=== PATIENT | female | born 1935 | race Caucasian/White ===

== ENCOUNTER 2017-05-01 17:17 | Inpatient (IN) ==
[2017-05-01] MEDS ORDERED: Ipratropium/Albuterol Neb 3 ML IH ONE (18:36)
[2017-05-01 18:38] LABS: Basophils % 0.2 %; Eosinophils # 0.2 K/mcL (0.0-0.6); Eosinophils % 1.2 %; Hematocrit 48.4 % (35.3-44.9); Hemoglobin 15.8 g/dL (11.5-15.4); Immature Granulocytes % 0.4 % (0-4); Lymphocytes % 5.6 %; Mean Corpuscular HGB Conc 32.6 g/dL (31.6-35.5); Mean Corpuscular Hemoglobin 28.9 pg (28.0-33.3); Mean Corpuscular Volume 88.5 fL (83.0-100.0); Mean Platelet Volume 9.6 fL (9.4-12.4); Monocytes # 1.2 K/mcL (0.0-1.3); Monocytes % 6.6 %; Neutrophils # 15.6 K/mcL (1.6-8.9); Nucleated Red Blood Cells 0.1 /100 WBC (0); Platelet Count 237 K/mcL (140-400); Red Blood Count 5.47 M/mcL (3.82-4.97); Red Cell Distribution Width 13.4 % (11.5-14.5)
--- NOTE | 2017-05-01 18:39 | Emergency Department Note ---
Disposition Clinical Impression: Dyspnea Disposition: Still a Patient Referrals: Cody Arora MD [Primary Care Provider] - SOB HPI - General Chief Complaint: ED Shortness of Breath/Dyspnea Stated Complaint: JANE Time Seen by Provider: 05/01/17 18:37 Source: patient, family, EMS Limitations: altered mental status Nursing Notes Reviewed: Yes Vital Signs Reviewed: Yes - History of Present Illness Patient presents to the ED for confusion and shortness of breath. History is provided by family. They state she became labored in breathing 2 hours ago while she was getting dressed with a caregiver. Son states she was okay this morning. She states she cannot catch her breath. They states she has been having some confusion and she is currently on Bactrim for possible UTI. She denies chest pain. She denies any history of coronary disease or CHF. She is a current smoker. She does not wear oxygen but they state they checked on a portable pulse ox and it was in the 80s. - Related Data Home Medications Medication Instructions Recorded Confirmed Losartan 12/12/16 12/12/16 Potassium Chloride 12/12/16 Previous Rx's Medication Instructions Recorded levoFLOXacin [Levaquin] 500 mg PO DAILY #10 tablet 12/12/16 methylPREDNISolone [Medrol] 0 mg PO DAILY #21 tablet 12/12/16 Allergies Allergy/AdvReac Type Severity Reaction Status Date / Time Penicillins [PCN] Allergy Rash Verified 05/01/17 17:39 All systems ED: reviewed and negative except as stated. Constitutional: Denies: fever Cardiovascular: Denies: chest pain Respiratory: Reports: cough, dyspnea. Denies: wheezes Gastrointestinal: Denies: vomiting, diarrhea Past Medical History - Past Medical History Attestation: Yes The following information was validated with the patient. Source: patient, obtained from family Medical history: Reports: non-contributory, hypertension Psychiatric history: Reports: no psych history - Social History Smoking Status: Current every day smoker Smokeless Tobacco Status: No Alcohol use: Reports: none Drug use: Reports: none Physical Exam Patient awake and alert. Visibly dyspneic and tachypneic. Mild respiratory distress. Lung sounds are diminished. - General Limitations: altered mental status General appearance: alert, in no apparent distress - Head Head exam: atraumatic, normocephalic - Eye Eye exam: Present: normal appearance - ENT ENT exam: normal exam, normal oropharynx - Neck Neck exam: Present: normal inspection - Chest Chest inspection: Present: normal inspection - Respiratory Respiratory exam: Present: respiratory distress, accessory muscle use. Absent: stridor - Cardiovascular Cardiovascular exam: Present: normal rhythm, tachycardia - Abdominal Exam Abdominal exam: Present: soft, Non-Tender - Neurological Exam Neurological exam: Present: alert - Psychiatric Psychiatric exam: Present: normal affect - Skin Skin exam: Present: warm, dry Course Course Narrative: Patient short of breath but her mental status. Concern for pneumonia. Septic workup. Will be signed out to mine shifter. Vital Signs Temperature 99.6 F 05/01/17 17:33 Pulse Rate 111 05/01/17 17:33 Respiratory Rate 24 05/01/17 17:33 Blood Pressure 159/92 05/01/17 17:33 O2 Sat by Pulse Oximetry 93 05/01/17 17:33 Temperature 99.6 F 05/01/17 17:33 Pulse Rate 117 05/01/17 18:30 Respiratory Rate 26 05/01/17 18:30 Blood Pressure 179/106 05/01/17 18:30 O2 Sat by Pulse Oximetry 93 05/01/17 18:30 Oxygen Delivery Oxygen Delivery Nasal Cannula Shortness of Breath/Dyspnea - EKG Data EKG attestation: Yes I reviewed and interpreted this EKG. EKG results narrative: Sinus tach at 109. Minimal anteroseptal ST depressions likely secondary to rate. Normal QRS. Unchanged from EKG August 2009.
[2017-05-01 18:44] LABS: Bilirubin,Urine Negative (Negative); Blood,Urine Negative (Negative); Clarity,Urine Clear (Clear); Color,Urine Yellow (Yellow); Glucose,Urine (UA) Normal (Normal); Ketones,Urine Trace mg/dL (Negative); Leukocyte Esterase,Urine Trace (Negative); Nitrite,Urine Negative (Negative); Protein,Urine Negative (Neg-Trace); Specific Gravity,Urine 1.019 (1.010-1.025); Urobilinogen,Urine Normal (Normal)
[2017-05-01 18:45] LABS: Bacteria,Urine None Seen per hpf (None-Few); Hyaline Casts,Urine None Seen per lpf (None-Few); RBC,Urine 0-3 per hpf (0-3); Squamous Epithelial Cell,Urine Many per lpf (None-Few); WBC,Urine 0-3 per hpf (0-3)
[2017-05-01] MEDS ORDERED: 0.9 % Sodium Chloride 1,000 ML IVC ONE ×2 (18:47→20:39)
[2017-05-01] MEDS ORDERED: Azithromycin 500 MG in D5% in Water 250 ML IVPB ONE (18:48)
[2017-05-01 18:53] LABS: Calcium 9.6 mg/dL (8.6-10.8); Potassium 4.3 mEq/L (3.5-4.5)
[2017-05-01 20:00] LABS: Albumin/Globulin Ratio 1.2 (1.1-2.2); Bilirubin,Direct 0.2 mg/dL (0.0-0.5); Bilirubin,Indirect 0.4 mg/dL (0.0-1.2); Bilirubin,Total 0.6 mg/dL (0.2-1.2); Globulin 3.4 g/dL (2.4-3.5); Magnesium 1.8 mg/dL (1.6-2.6); Phosphorous 2.5 mg/dL (2.3-4.7); Total Protein 7.4 g/dL (6.0-8.3)
[2017-05-01] MEDS ORDERED: 0.9 % Sodium Chloride 500 ML IVC ONE (22:00)
--- NOTE | 2017-05-01 22:44 | Emergency Department Note ---
Disposition Clinical Impression: Septic shock Dyspnea Qualifiers: Dyspnea type: unspecified Qualified Code(s): R06.00 - Dyspnea, unspecified Pneumonia Qualifiers: Aspiration pneumonia type: unspecified Laterality: left Lung location: unspecified part of lung Acute respiratory failure Qualifiers: Respiratory failure complication: unspecified whether with hypoxia or hypercapnia Qualified Code(s): J96.00 - Acute respiratory failure, unspecified whether with hypoxia or hypercapnia Disposition: Admitted As Inpatient Condition: Critical Time of Disposition: 22:45 SOB HPI - General Chief Complaint: ED Shortness of Breath/Dyspnea Stated Complaint: JANE Time Seen by Provider: 05/01/17 18:37 Source: patient, family, EMS Limitations: altered mental status Nursing Notes Reviewed: Yes Vital Signs Reviewed: Yes - History of Present Illness Patient received on sign out from the day team, Dr. Monson and Dr. Gordillo. Please refer to their note for complete history and physical exam on intake. In brief: Mrs. Carver, an 81-year-old female, presents from home for evaluation of acute onset dyspnea this morning per her home health aide. Patient has had no fevers or chills. She is not having diagnosis of COPD who has a remote history of smoking. Patient is on day 3 of Macrobid for a urinary tract infection. - Related Data Home Medications Medication Instructions Recorded Confirmed Calcium Carbonate/Vitamin D3 1 each PO BID 05/01/17 05/01/17 [Calcium 600-Vit D3 800 Tablet] Cholecalciferol (D-3) [Vitamin D] 1,000 unit PO DAILY 05/01/17 05/01/17 Loratadine [Claritin] 10 mg PO DAILY 05/01/17 05/01/17 Losartan Potassium [Cozaar] 50 mg PO DAILY 05/01/17 05/01/17 Memantine HCl [Namenda Xr] 28 mg PO DAILY 05/01/17 05/01/17 Nitrofurantoin (BID) [Macrobid] 100 mg PO BID 05/01/17 05/01/17 Polymyxn-B/Trimeth Opth Drops 1 drop RIGHT EYE Q3H 05/01/17 05/01/17 [Polytrim Opth Drops] Potassium Chloride [Klor-Con 10] 10 meq PO AD 05/01/17 05/01/17 Tolterodine LA (24 HR) [Detrol LA] 2 mg PO DAILY 05/01/17 05/01/17 Vit C/E/Zn/Coppr/Lutein/Zeaxan 1 cap PO BID 05/01/17 05/01/17 [Preservision Areds 2 Softgel] hydroCHLOROthiazide 12.5 mg PO MOWEFR 05/01/17 05/01/17 [Hydrochlorothiazide] Allergies Allergy/AdvReac Type Severity Reaction Status Date / Time Penicillins [PCN] Allergy Rash Verified 05/01/17 17:39 All systems ED: reviewed and negative except as stated. Review of Systems: As Per HPI Constitutional: Denies: fever Cardiovascular: Denies: chest pain Respiratory: Reports: cough, dyspnea. Denies: wheezes Gastrointestinal: Denies: vomiting, diarrhea Past Medical History - Past Medical History Medical history: Reports: non-contributory, hypertension Psychiatric history: Reports: no psych history - Social History Smoking Status: Current every day smoker Smokeless Tobacco Status: No Alcohol use: Reports: none Drug use: Reports: none Physical Exam Vital Signs Reviewed General: Patient is alert, oriented, and in moderate respiratory distress. She is tachypneic but otherwise appears comfortable. HEENT: No facial asymmetry. Head is normocephalic and atraumatic. [place]uc[place] tachycardia. Trachea midline. Cardiovascular: Heart regular rate and rhythm without clicks, rubs, gallops, or murmurs. No JVD. PMI nondisplaced. Respiratory: Symmetric chest rise with poor respiratory effort. Prolonged expiratory phase. Bilateral breath sounds are diminished. Abdomen: Bowel sounds present normoactive x-4 quadrants. Abdomen is soft, nondistended, and nontender. No organomegaly noted. Skin: Warm, dry, intact. Psych: Patient's affect is appropriate for situation. - General Limitations: altered mental status General appearance: alert, in no apparent distress Course Course Narrative: Patient received on sign out from the day team, Dr. Monson and Dr. Gordillo. Please refer to their note for complete history and physical exam on intake. After 1 L IV bolus, patient has borderline blood pressure with systolic in the 90s. She remains tachypneic and tachycardic. We will rebolus an additional 1.5 L reassessing her lung sounds and moderate her vitals. Patient is SIRS (+) with tachypnea, tachycardia She has severe sepsis with lactate 4.1. Suspected source of community-acquired pneumonia. Empiric antibodies started by the day team. I discussed all findings with the patient and her daughter at bedside. They agree to admission to the hospital for continued evaluation and management. I discussed the patient with the admitting hospitalist, Dr. Petty, who agrees to accept her for continued evaluation and management. Reevaluation, patient remains tachycardic with worsening tachypnea area for work of breathing appears to be increased. She is saturating well on nasal cannula. In conjunction with Dr. Petty, will draw ABG and place on BiPAP with patient slotted for admission to the ICU. - Reevaluation(s) Reevaluation #1: On reexamination after 2 L of fluid patient's oxygen saturation is 96% on oxygen by nasal cannula. Respiratory rate 28. Heart rate 118. Blood pressure 121/63. Patient is alert and oriented and mentating normally. Breath sounds are decreased but equal bilaterally. No rales or wheezes noted. Heart is tachycardic and regular. Skin is warm and dry with good capillary refill and normal peripheral pulses. Time: 22:30 Vital Signs Temperature 99.6 F 05/01/17 17:33 Pulse Rate 111 05/01/17 17:33 Respiratory Rate 24 05/01/17 17:33 Blood Pressure 159/92 05/01/17 17:33 O2 Sat by Pulse Oximetry 93 05/01/17 17:33 Temperature 99.1 F 05/01/17 22:29 Pulse Rate 114 05/01/17 22:29 Respiratory Rate 20 05/01/17 22:29 Blood Pressure 121/63 05/01/17 22:29 O2 Sat by Pulse Oximetry 95 05/01/17 22:29 Oxygen Delivery Oxygen Delivery Nasal Cannula Shortness of Breath/Dyspnea - Lab Data Result diagrams: 05/01/17 18:27 05/01/17 18:27 Lab Results 05/01/17 05/01/17 05/01/17 Range/Units 18:27 18:27 18:27 WBC 18.1 H (4.3-11.1) K/mcL RBC 5.47 H (3.82-4.97) M/mcL Hgb 15.8 H (11.5-15.4) g/dL Hct 48.4 H (35.3-44.9) % MCV 88.5 (83.0-100.0) fL MCH 28.9 (28.0-33.3) pg MCHC 32.6 (31.6-35.5) g/dL RDW 13.4 (11.5-14.5) % Plt Count 237 (140-400) K/mcL MPV 9.6 (9.4-12.4) fL Immature Gran % 0.4 (0-4) % Seg Neutrophils % 86.0 % Lymphocytes % 5.6 % Monocytes % 6.6 % Eosinophils % 1.2 % Basophils % 0.2 % Neutrophils # 15.6 H (1.6-8.9) K/mcL Lymphocytes # 1.0 (0.6-4.6) K/mcL Monocytes # 1.2 (0.0-1.3) K/mcL Eosinophils # 0.2 (0.0-0.6) K/mcL Basophils # 0.0 (0.0-0.2) K/mcL Nucleated RBCs/100 WBC 0.1 H (0) /100 WBC Sodium 138 (136-145) mEq/L Potassium 4.3 (3.5-4.5) mEq/L Chloride 102 (98-109) mEq/L Carbon Dioxide 26 (19-29) mEq/L BUN 15 (7-20) mg/dL Creatinine 1.11 (0.57-1.11) mg/dL Est GFR ( Amer) 57 L (> 60) Est GFR (Non-Af Amer) 47 L (> 60) BUN/Creatinine Ratio 14 (6-26) Glucose 156 H (70-99) mg/dL Calculated Osmolality 290 (280-300) Lactic Acid 2.5 H (0.5-2.2) mmol/L Calcium 9.6 (8.6-10.8) mg/dL Phosphorus (2.3-4.7) mg/dL Magnesium (1.6-2.6) mg/dL Total Bilirubin (0.2-1.2) mg/dL Direct Bilirubin (0.0-0.5) mg/dL Indirect Bilirubin (0.0-1.2) mg/dL AST (5-34) Units/L ALT (0-55) Units/L Alkaline Phosphatase (38-126) Units/L Troponin I (0-0.03) ng/mL B-Natriuretic Peptide (0-100) pg/mL Serum Total Protein (6.0-8.3) g/dL Albumin (3.5-5.0) g/dL Globulin (2.4-3.5) g/dL Albumin/Globulin Ratio (1.1-2.2) Urine Color (Yellow) Urine Clarity (Clear) Urine pH (5.0-8.0) pH Units Ur Specific [place] (1.010-1.025) Urine Protein (Neg-Trace) mg/dL Urine Glucose (UA) (Normal) mg/dL Urine Ketones (Negative) mg/dL Urine Blood (Negative) Urine Nitrite (Negative) Urine Bilirubin (Negative) Urine Urobilinogen (Normal) mg/dL Ur Leukocyte Esterase (Negative) Urine Microscopic RBC (0-3) per hpf Urine Microscopic WBC (0-3) per hpf Ur Squamous Epith Cells (None-Few) per lpf Urine Bacteria (None-Few) per hpf Hyaline Casts (None-Few) per lpf Ur Culture Indicated? (NO) 05/01/17 05/01/17 05/01/17 Range/Units 18:27 18:27 18:27 WBC (4.3-11.1) K/mcL RBC (3.82-4.97) M/mcL Hgb (11.5-15.4) g/dL Hct (35.3-44.9) % MCV (83.0-100.0) fL MCH (28.0-33.3) pg MCHC (31.6-35.5) g/dL RDW (11.5-14.5) % Plt Count (140-400) K/mcL MPV (9.4-12.4) fL Immature Gran % (0-4) % Seg Neutrophils % % Lymphocytes % % Monocytes % % Eosinophils % % Basophils % % Neutrophils # (1.6-8.9) K/mcL Lymphocytes # (0.6-4.6) K/mcL Monocytes # (0.0-1.3) K/mcL Eosinophils # (0.0-0.6) K/mcL Basophils # (0.0-0.2) K/mcL Nucleated RBCs/100 WBC (0) /100 WBC Sodium (136-145) mEq/L Potassium (3.5-4.5) mEq/L Chloride (98-109) mEq/L Carbon Dioxide (19-29) mEq/L BUN (7-20) mg/dL Creatinine (0.57-1.11) mg/dL Est GFR ( Amer) (> 60) Est GFR (Non-Af Amer) (> 60) BUN/Creatinine Ratio (6-26) Glucose (70-99) mg/dL Calculated Osmolality (280-300) Lactic Acid (0.5-2.2) mmol/L Calcium (8.6-10.8) mg/dL Phosphorus 2.5 (2.3-4.7) mg/dL Magnesium 1.8 (1.6-2.6) mg/dL Total Bilirubin 0.6 (0.2-1.2) mg/dL Direct Bilirubin 0.2 (0.0-0.5) mg/dL Indirect Bilirubin 0.4 (0.0-1.2) mg/dL AST 15 (5-34) Units/L ALT 14 (0-55) Units/L Alkaline Phosphatase 94 (38-126) Units/L Troponin I 0.00 (0-0.03) ng/mL B-Natriuretic Peptide 123 H (0-100) pg/mL Serum Total Protein 7.4 (6.0-8.3) g/dL Albumin 4.0 (3.5-5.0) g/dL Globulin 3.4 (2.4-3.5) g/dL Albumin/Globulin Ratio 1.2 (1.1-2.2) Urine Color (Yellow) Urine Clarity (Clear) Urine pH (5.0-8.0) pH Units Ur Specific [place] (1.010-1.025) Urine Protein (Neg-Trace) mg/dL Urine Glucose (UA) (Normal) mg/dL Urine Ketones (Negative) mg/dL Urine Blood (Negative) Urine Nitrite (Negative) Urine Bilirubin (Negative) Urine Urobilinogen (Normal) mg/dL Ur Leukocyte Esterase (Negative) Urine Microscopic RBC (0-3) per hpf Urine Microscopic WBC (0-3) per hpf Ur Squamous Epith Cells (None-Few) per lpf Urine Bacteria (None-Few) per hpf Hyaline Casts (None-Few) per lpf Ur Culture Indicated? (NO) 05/01/17 05/01/17 Range/Units 18:28 19:45 WBC (4.3-11.1) K/mcL RBC (3.82-4.97) M/mcL Hgb (11.5-15.4) g/dL Hct (35.3-44.9) % MCV (83.0-100.0) fL MCH (28.0-33.3) pg MCHC (31.6-35.5) g/dL RDW (11.5-14.5) % Plt Count (140-400) K/mcL MPV (9.4-12.4) fL Immature Gran % (0-4) % Seg Neutrophils % % Lymphocytes % % Monocytes % % Eosinophils % % Basophils % % Neutrophils # (1.6-8.9) K/mcL Lymphocytes # (0.6-4.6) K/mcL Monocytes # (0.0-1.3) K/mcL Eosinophils # (0.0-0.6) K/mcL Basophils # (0.0-0.2) K/mcL Nucleated RBCs/100 WBC (0) /100 WBC Sodium (136-145) mEq/L Potassium (3.5-4.5) mEq/L Chloride (98-109) mEq/L Carbon Dioxide (19-29) mEq/L BUN (7-20) mg/dL Creatinine (0.57-1.11) mg/dL Est GFR ( Amer) (> 60) Est GFR (Non-Af Amer) (> 60) BUN/Creatinine Ratio (6-26) Glucose (70-99) mg/dL Calculated Osmolality (280-300) Lactic Acid 4.1 H* (0.5-2.2) mmol/L Calcium (8.6-10.8) mg/dL Phosphorus (2.3-4.7) mg/dL Magnesium (1.6-2.6) mg/dL Total Bilirubin (0.2-1.2) mg/dL Direct Bilirubin (0.0-0.5) mg/dL Indirect Bilirubin (0.0-1.2) mg/dL AST (5-34) Units/L ALT (0-55) Units/L Alkaline Phosphatase (38-126) Units/L Troponin I (0-0.03) ng/mL B-Natriuretic Peptide (0-100) pg/mL Serum Total Protein (6.0-8.3) g/dL Albumin (3.5-5.0) g/dL Globulin (2.4-3.5) g/dL Albumin/Globulin Ratio (1.1-2.2) Urine Color Yellow (Yellow) Urine Clarity Clear (Clear) Urine pH 6.0 (5.0-8.0) pH Units Ur Specific [place] 1.019 (1.010-1.025) Urine Protein Negative (Neg-Trace) mg/dL Urine Glucose (UA) Normal (Normal) mg/dL Urine Ketones Trace H (Negative) mg/dL Urine Blood Negative (Negative) Urine Nitrite Negative (Negative) Urine Bilirubin Negative (Negative) Urine Urobilinogen Normal (Normal) mg/dL Ur Leukocyte Esterase Trace H (Negative) Urine Microscopic RBC 0-3 (0-3) per hpf Urine Microscopic WBC 0-3 (0-3) per hpf Ur Squamous Epith Cells Many H (None-Few) per lpf Urine Bacteria None Seen (None-Few) per hpf Hyaline Casts None Seen (None-Few) per lpf Ur Culture Indicated? YES A (NO) Critical Care Time Critical Care Time: Yes Total Critical Care Time: 45 Attestation: Critical care performed: Time is exclusive of separately billable procedures. Time includes: direct patient care, patient reassessment, coordination of patient care, interpretation of data (laboratory data, radiology data, and respiratory data), review of patient's medical records, medical consultation and documentation of patient care. Procedures included in critical care time: Procedures excluded from critical care time: Attestation Statement - Attestation Attestation: I, Coleman Marquez MD, personally evaluated this patient and discussed their management with the resident physician. I reviewed the resident's note and agree with the documented findings, medical decision making, and plan of care. This patient was signed out at shift change from Dr. Monson. Please refer to her note for complete details of the history and physical examination. Patient is an 81-year-old male who presented to the emergency department complaining of shortness of breath was just started this evening. There has been some cough. She does not know see any fever. Patient states that she has not felt well for the past few days. Workup revealed a left lower lobe pneumonia. Patient meets criteria for septic shock with a lactate greater than 4. She had blood cultures, IV fluids, and antibiotics. The emergency department. On examination patient is a well-developed well-nourished elderly female in no acute distress. She is alert and oriented 3. Patient is tachypneic with a respiratory rate of 28 at time of my exam. She also is tachycardic with a heart rate of about 120. There is no cyanosis or diaphoresis. Breath sounds are equal bilaterally with no definite rales or wheezes noted. Heart is tachycardic and regular. Abdomen soft and nontender with normal bowel sounds. Chest x-ray showed a left lower lobe pneumonia. Labs reviewed. Leukocytosis. Lactic acid 4.1. The hospitalist, Dr. Petty, was consulted and accepted admission of the patient. Patient admitted to ICU.
[2017-05-01] MEDS ORDERED: methylPREDNISolone 125 MG/2 ML VIAL IVP ONE (22:52)
[2017-05-01] MEDS ORDERED: Furosemide 40 MG/4 ML VIAL IVP ONE (22:58)
[2017-05-01] MEDS ORDERED: Levofloxacin 750 MG/150 ML 750 MG/150 ML BAG IVPB SCH (23:00)
[2017-05-01] MEDS ORDERED: Cefepime HCl 2,000 MG in D5% in Water 100 ML IVP SCH (23:00)
[2017-05-01] MEDS ORDERED: Cefepime HCl 2,000 MG in Water for inj. (sterile) 10 ML IVP SCH (23:00)
[2017-05-01] MEDS ORDERED: Vancomycin 1,250 MG in D5% in Water 250 ML IVPB SCH (23:00)
[2017-05-01 23:04] LABS: ABG Base Excess -6 mEq/L (-2 to 3); ABG HCO3 20 mEq/L (21-27); ABG Oxygen Saturation 96 % (95-98); ABG PCO2 42 mmHg (35-45); ABG PO2 89 mmHg (85-104); ABG TCO2 22 mEq/L (20-26)
[2017-05-01] MEDS: Ipratropium/Albuterol Neb 3 ML IH SCH (23:59)
[2017-05-02] MEDS ORDERED: Vancomycin 1,250 MG in D5% in Water 250 ML IVPB SCH (00:01)
[2017-05-02] MEDS: methylPREDNISolone 125 MG/2 ML VIAL IVP SCH ×2 (00:13→05:30)
--- NOTE | 2017-05-02 00:43 | Internal Med History&Physical ---
Date of Encounter: 05/02/17 Time of Encounter: 00:42 Assessment and Plan (1) Community acquired pneumonia Current visit: Yes Status: Acute Given acuity of presentation and the fact that she has been on Bactrim for 4 days I will broaden antibiotic coverage for pneumonia. We will start the patient on vancomycin, cefepime, Levaquin. Check sputum and blood culture. Patient also has an elemental bronchospasm. She is a lifelong smoker and maybe having underlying COPD. I will start the patient on IV steroids and around-the- clock nebulizer treatment. Qualifiers: Qualified Code(s): J18.9 - Pneumonia, unspecified organism (2) Acute respiratory failure Current visit: Yes Status: Acute Patient with increased work of breathing despite being on 3 L of oxygen. I would start the patient on BiPAP to help with the work of breathing. Arterial blood gas was performed showed mild metabolic acidosis, PCO2 was 42. And PO2 of 89 on 3 L of nasal oxygen. Qualifiers: Respiratory failure complication: unspecified whether with hypoxia or hypercapnia Qualified Code(s): J96.00 - Acute respiratory failure, unspecified whether with hypoxia or hypercapnia (3) Full code status Current visit: Yes Status: Acute Internal Medicine - H&P: HPI Chief complaint: sob History of present illness: Ms. Carver is a 81 year old female who is a lifelong smoker presents to the emergency room today with a main component of shortness of breath. For the past day or so patient has been noticing progressive shortness of breath to the point where she is unable to breathe the rest. She was having nonproductive cough subjective fevers and chills. She was found to have oxygen saturation of 80%. Patient has been recently on Bactrim for 4 days for urinary tract infection. During my interview agent was in respiratory distress, with excessive muscle use and speaking in 1 to 2 word sentences. She denies any chest pain. She she had just received 2.5 L of fluid for meeting sepsis criteria. She denies any recent hospitalization within the past 3 months. She is a lifelong smoker has not been officially diagnosed with COPD. Past Med Surg Social Fam HX - Past Medical History Medical history: non-contributory, hypertension Psychiatric history: no psych history - Social History Smoking Status: Current every day smoker Smokeless Tobacco Status: No Alcohol use: none Drug use: none Internal Medicine - H&P: Meds Calcium Carbonate/Vitamin D3 [Calcium 600-Vit D3 800 Tablet] 1 each PO BID 05/01 [History] Cholecalciferol (D-3) [Vitamin D] 1,000 unit PO DAILY 05/01/17 [History] Loratadine [Claritin] 10 mg PO DAILY 05/01/17 [History] Losartan Potassium [Cozaar] 50 mg PO DAILY 05/01/17 [History] Memantine HCl [Namenda Xr] 28 mg PO DAILY 05/01/17 [History] Nitrofurantoin (BID) [Macrobid] 100 mg PO BID 05/01/17 [History] Polymyxn-B/Trimeth Opth Drops [Polytrim Opth Drops] 1 drop RIGHT EYE Q3H [History] Potassium Chloride [Klor-Con 10] 10 meq PO AD 05/01/17 [History] Tolterodine LA (24 HR) [Detrol LA] 2 mg PO DAILY 05/01/17 [History] Vit C/E/Zn/Coppr/Lutein/Zeaxan [Preservision Areds 2 Softgel] 1 cap PO BID 05/01 [History] hydroCHLOROthiazide [Hydrochlorothiazide] 12.5 mg PO MOWEFR 05/01/17 [History] 3 Allergy/AdvReac Type Severity Reaction Status Date / Time Penicillins [PCN] Allergy Rash Verified 05/01/17 17:39 All Systems PM: A 10-system review of systems was performed and is negative for pertinent findings except as documented above in the HPI. Review of systems: 10 point review of systems is negative except for HPI - Constitutional Vitals: Temp Pulse Resp BP Pulse Ox 99.1 F 114 27 117/60 96 05/01/17 22:29 05/01/17 22:29 05/01/17 23:59 05/01/17 23:59 05/01/17 23:59 Exam: Gen.: patient is alert oriented times 3, moderate respiratory distress cardiac: Normal S1, S2, no additional sounds or murmurs chest: diminishaed air entry, expiratory wheeze, crackles inleft base Abdomen: Soft, slight tenderness to deep palpation in lower abdomen. No rebound lower extremity Lax calf muscles no swelling Neuro: no focal deficits Internal Med - H&P Results - Labs CBC & Chem 7: 05/01/17 18:27 05/01/17 18:27 - ABG Interpretation ABG results: 05/01/17 22:54 ABG pH 7.30 L ABG pCO2 42 ABG pO2 89 ABG HCO3 20 L ABG Total CO2 22 ABG O2 Saturation 96 ABG Base Excess -6 L
[2017-05-02] MEDS: Ipratropium/Albuterol Neb 3 ML IH SCH ×4 (01:53→08:48)
[2017-05-02 04:44] LABS: Basophils % 0.1 %; Eosinophils % 0.1 %; Hematocrit 40.4 % (35.3-44.9); Immature Granulocytes % 0.6 % (0-4); Lymphocytes # 0.4 K/mcL (0.6-4.6); Lymphocytes % 2.3 %; Mean Corpuscular HGB Conc 33.4 g/dL (31.6-35.5); Mean Corpuscular Hemoglobin 29.6 pg (28.0-33.3); Mean Corpuscular Volume 88.6 fL (83.0-100.0); Mean Platelet Volume 9.8 fL (9.4-12.4); Monocytes # 0.5 K/mcL (0.0-1.3); Monocytes % 2.6 %; Neutrophils # 16.8 K/mcL (1.6-8.9); Platelet Count 190 K/mcL (140-400); Red Blood Count 4.56 M/mcL (3.82-4.97); Red Cell Distribution Width 13.7 % (11.5-14.5); Segmented Neutrophils % 94.3 %
[2017-05-02 04:45] LABS: Hemoglobin 13.5 g/dL (11.5-15.4)
[2017-05-02 05:03] LABS: Magnesium 1.5 mg/dL (1.6-2.6); Potassium 3.7 mEq/L (3.5-4.5)
[2017-05-02] MEDS ORDERED: 0.9 % Sodium Chloride 500 ML IVC ONE ×2 (05:07→10:48)
[2017-05-02] MEDS ORDERED: *HR* Heparin 5,000 UNIT/ML VIAL SQ SCH (06:00)
[2017-05-02] MEDS ORDERED: Magnesium Sulfate 2 GM in D5% in Water 100 ML IVPB ONE (06:56)
[2017-05-02] MEDS ORDERED: Ipratropium/Albuterol Neb 3 ML IH PRN ×2 (08:13→12:18)
[2017-05-02] MEDS ORDERED: Pantoprazole 40 MG VIAL IVP SCH (09:00)
[2017-05-02] MEDS ORDERED: *HR* Dextrose 50 % in Water (Syg) 50 ML SYRINGE IVP PRN ×3 (09:03→12:18)
[2017-05-02] MEDS ORDERED: Dextrose Gel 15 GM PO PRN ×8 (09:03→12:18)
[2017-05-02] MEDS ORDERED: D5% in Water 1,000 ML IVC PRN ×3 (09:03→12:18)
[2017-05-02] MEDS ORDERED: Ringers Solution, Lactated 1,000 ML IVC SCH (09:15)
--- NOTE | 2017-05-02 09:42 | Pulmonology Consult Note ---
Date of Encounter: 05/02/17 Time of Encounter: 07:30 Assessment and Plan (1) Severe sepsis Current Visit: Yes Status: Acute Patient was received fluid, I feel that she still need more fluid resuscitation and she will need to be IV maintenance. She is on broad-spectrum antibiotic and source most likely is urinary tract and I have reviewed chest x-ray overall I am not impressed about pneumonia to be is the source, however it is in the differential diagnosis. I will repeat lactic acid level. Patient overall alert and follows commands and denies any distress. Clinically there is no signs of hypoperfusion such as cold skin or poor capillary refills. (2) Suspected chronic obstructive pulmonary disease based on initial evaluation Current Visit: Yes Status: Chronic Patient has history of smoking and she will need outpatient workup. I do not feel this is COPD exacerbation and I will stop her systemic steroid and had Symbicort. (3) Tobacco abuse Current Visit: Yes Status: Chronic Advised patient to quit smoking. (4) Tobacco abuse counseling Current Visit: Yes Status: Chronic (5) Acute respiratory failure Current Visit: Yes Status: Acute Apparently patient did not have a pulmonary workup in the past and with history of smoking is a possibility that she needed oxygen even before this illness, but is unknown and for now she will need to be on oxygen and wean off to keep SPO2 around 90%. Qualifiers: Respiratory failure complication: unspecified whether with hypoxia or hypercapnia Qualified Code(s): J96.00 - Acute respiratory failure, unspecified whether with hypoxia or hypercapnia (6) AWILDA (acute kidney injury) Current Visit: Yes Status: Acute This is could be related to underlying sepsis and she will need IV fluid. (7) Community acquired pneumonia Current Visit: Yes Status: Acute I reviewed chest x-ray and suspect atelectasis rather than pneumonia, however it is in the differential diagnosis and since she is a smoker this could be a source of sepsis. Qualifiers: Qualified Code(s): J18.9 - Pneumonia, unspecified organism History of Present Illness Consult date: 05/02/17 Requesting physician: Rafiq Petty Reason for consult: dyspnea, other (Severe sepsis) Chief complaint: Shortness of breath History of present illness: This is a pleasant 81-year-old poor historian with significant history of smoking who presented to emergency room with chief complaint of shortness of breath, but she is not able to specify for how long. Patient is feeling better now. She was found to have high lactic acid and was admitted to ICU. Patient has received some fluid restrict, however she was given Lasix also and her lactic acid apparently has increased. Patient denies any significant productive cough and denies any fever. She was found to be hypoxic, however she is not on oxygen at home. Patient has been treated for UTI and she was also reported to have some mental status change. Again overall poor historian and not able to obtain more history from her. Past Med Surg Social Fam HX - Past Medical History Medical history: non-contributory, hypertension Psychiatric history: no psych history - Social History Smoking Status: Current every day smoker Smokeless Tobacco Status: No Alcohol use: none Drug use: none Medications and Allergies Calcium Carbonate/Vitamin D3 [Calcium 600-Vit D3 800 Tablet] 1 each PO BID 05/01 [History] Cholecalciferol (D-3) [Vitamin D] 1,000 unit PO DAILY 05/01/17 [History] Loratadine [Claritin] 10 mg PO DAILY 05/01/17 [History] Losartan Potassium [Cozaar] 50 mg PO DAILY 05/01/17 [History] Memantine HCl [Namenda Xr] 28 mg PO DAILY 05/01/17 [History] Nitrofurantoin (BID) [Macrobid] 100 mg PO BID 05/01/17 [History] Polymyxn-B/Trimeth Opth Drops [Polytrim Opth Drops] 1 drop RIGHT EYE Q3H [History] Potassium Chloride [Klor-Con 10] 10 meq PO AD 05/01/17 [History] Tolterodine LA (24 HR) [Detrol LA] 2 mg PO DAILY 05/01/17 [History] Vit C/E/Zn/Coppr/Lutein/Zeaxan [Preservision Areds 2 Softgel] 1 cap PO BID 05/01 [History] hydroCHLOROthiazide [Hydrochlorothiazide] 12.5 mg PO MOWEFR 05/01/17 [History] 3 Allergy/AdvReac Type Severity Reaction Status Date / Time Penicillins [PCN] Allergy Rash Verified 05/01/17 17:39 All Systems: A 10-system review of systems was performed and is negative for pertinent findings except as documented above in the HPI. Physical Examination Vital Signs: Vital Signs, Last 4 Hours Temp Pulse Resp BP Pulse Ox 05/02/17 08:14 98.7 F 05/02/17 08:00 104 05/02/17 06:00 107 20 109/68 94 05/02/17 05:40 16 95 General appearance: no acute distress Eyes: nonicteric ENT: oropharynx dry Mallampati (class): 3 Neck: supple, no lymphadenopathy Effort: mildly labored Inspection: hyperextended Auscultation: bilateral: diminished breath sounds Percussion: bilateral: not dull Cardiovascular: regular rate and rhythm Gastrointestinal: normoactive bowel sounds, non-distended Extremities: no cyanosis normal mental status, non-focal exam anxious Results - Laboratory Findings CBC and BMP: 05/02/17 04:29 05/02/17 04:29 ABG ABG pH 7.30 pH Units (7.32-7.45) L 05/01/17 22:54 ABG pCO2 42 mmHg (35-45) 05/01/17 22:54 ABG pO2 89 mmHg (85-104) 05/01/17 22:54 ABG O2 Saturation 96 % (95-98) 05/01/17 22:54 Abnormal lab findings: Abnormal lab results WBC 17.8 K/mcL (4.3-11.1) H 05/02/17 04:29 Neutrophils # 16.8 K/mcL (1.6-8.9) H 05/02/17 04:29 Lymphocytes # 0.4 K/mcL (0.6-4.6) L 05/02/17 04:29 Nucleated RBCs/100 WBC 0.1 /100 WBC (0) H 05/01/17 18:27 ABG pH 7.30 pH Units (7.32-7.45) L 05/01/17 22:54 ABG HCO3 20 mEq/L (21-27) L 05/01/17 22:54 ABG Base Excess -6 mEq/L (-2 to 3) L 05/01/17 22:54 Creatinine 1.18 mg/dL (0.57-1.11) H 05/02/17 04:29 Est GFR ( Amer) 53 (> 60) L 05/02/17 04:29 Est GFR (Non-Af Amer) 44 (> 60) L 05/02/17 04:29 Glucose 311 mg/dL (70-99) H 05/02/17 04:29 POC Glucose 159 (58-89) H 05/01/17 23:23 Lactic Acid 7.6 mmol/L (0.5-2.2) H* 05/02/17 04:29 Calcium 8.0 mg/dL (8.6-10.8) L D 05/02/17 04:29 Magnesium 1.5 mg/dL (1.6-2.6) L 05/02/17 04:29 B-Natriuretic Peptide 123 pg/mL (0-100) H 05/01/17 18:27 Urine Ketones Trace mg/dL (Negative) H 05/01/17 18:28 Ur Leukocyte Esterase Trace (Negative) H 05/01/17 18:28 Ur Squamous Epith Cells Many per lpf (None-Few) H 05/01/17 18:28 Ur Culture Indicated? YES (NO) A 05/01/17 18:28 - Diagnostic Findings Chest x-ray: report reviewed, image reviewed - Clinical Findings Intake & Output: Intake & Output 05/01/17 05/02/17 05/02/17 23:59 07:59 15:59 Intake Total 910 / 910 Output Total 2300 / 2300 250 / 250 Balance -1390 / -1390 -250 / -250 Weight 76.8 kg Consult Discharge Plan - Plan Referrals: Cody Arora MD [Primary Care Provider] -
[2017-05-02] MEDS ORDERED: Budesonide/Formoterol 160/4.5 MDI IH SCH (10:00)
[2017-05-02] MEDS ORDERED: Insulin LISPRO 300 UNITS/3 ML VIAL SQ SCH ×2 (11:30→21:00)
[2017-05-02 12:36] LABS: Basophils % 0.1 %; Hematocrit 35.8 % (35.3-44.9); Hemoglobin 11.9 g/dL (11.5-15.4); Immature Granulocytes % 0.4 % (0-4); Immature Platelets 1.9 % (1.1-6.1); Lymphocytes # 0.5 K/mcL (0.6-4.6); Lymphocytes % 3.6 %; Mean Corpuscular HGB Conc 33.2 g/dL (31.6-35.5); Mean Corpuscular Hemoglobin 29.7 pg (28.0-33.3); Mean Corpuscular Volume 89.3 fL (83.0-100.0); Mean Platelet Volume 10.3 fL (9.4-12.4); Monocytes # 0.3 K/mcL (0.0-1.3); Monocytes % 1.9 %; Neutrophils # 13.3 K/mcL (1.6-8.9); Platelet Count 183 K/mcL (140-400); Red Blood Count 4.01 M/mcL (3.82-4.97)
[2017-05-02 12:41] LABS: INR 1.2; Prothrombin Time 13.5 Seconds (9.4-12.1)
[2017-05-02 12:43] LABS: Activated Partial Thrombo Time 26.4 Seconds (26.0-36.0)
[2017-05-02 12:49] LABS: Bilirubin,Direct 0.2 mg/dL (0.0-0.5); Bilirubin,Indirect 0.1 mg/dL (0.0-1.2); Bilirubin,Total 0.3 mg/dL (0.2-1.2); Calcium 7.7 mg/dL (8.6-10.8); Globulin 2.7 g/dL (2.4-3.5); Potassium 3.6 mEq/L (3.5-4.5)
[2017-05-02 12:51] LABS: Albumin 2.7 g/dL (3.5-5.0); Total Protein 5.4 g/dL (6.0-8.3)
[2017-05-02] MEDS: Ringers Solution, Lactated 1,000 ML IVC SCH (13:15)
[2017-05-02] MEDS ORDERED: Insulin LISPRO 300 UNITS/3 ML VIAL SQ ONE (13:20)
[2017-05-02] MEDS: *HR* Heparin 5,000 UNIT/ML VIAL SQ SCH ×2 (13:24→21:54)
[2017-05-02] MEDS: Insulin LISPRO 300 UNITS/3 ML VIAL SQ SCH ×3 (13:25→21:08)
[2017-05-02] MEDS: Budesonide/Formoterol 160/4.5 MDI IH SCH (20:02)
[2017-05-02] MEDS: Cefepime HCl 2,000 MG in Water for inj. (sterile) 10 ML IVP SCH (22:02)
[2017-05-03] MEDS: Ringers Solution, Lactated 1,000 ML IVC SCH ×2 (00:13→16:03)
[2017-05-03] MEDS ORDERED: Vancomycin 750 MG in D5% in Water 250 ML IVPB SCH ×2 (01:00→14:00)
[2017-05-03 03:15] LABS: Calcium 8.7 mg/dL (8.6-10.8); Potassium 4.1 mEq/L (3.5-4.5)
[2017-05-03 03:25] LABS: Basophils % 0.2 %; Eosinophils # 0.5 K/mcL (0.0-0.6); Eosinophils % 2.1 %; Hemoglobin 12.2 g/dL (11.5-15.4); Immature Granulocytes % 0.6 % (0-4); Lymphocytes # 1.3 K/mcL (0.6-4.6); Lymphocytes % 6.2 %; Mean Corpuscular Volume 88.1 fL (83.0-100.0); Mean Platelet Volume 10.2 fL (9.4-12.4); Monocytes # 1.4 K/mcL (0.0-1.3); Monocytes % 6.5 %; Neutrophils # 18.2 K/mcL (1.6-8.9); Platelet Count 179 K/mcL (140-400); Red Cell Distribution Width 14.1 % (11.5-14.5); Segmented Neutrophils % 84.4 %
[2017-05-03] MEDS: *HR* Heparin 5,000 UNIT/ML VIAL SQ SCH ×3 (06:50→22:16)
[2017-05-03] MEDS: Budesonide/Formoterol 160/4.5 MDI IH SCH ×2 (07:46→23:22)
[2017-05-03] MEDS: Insulin LISPRO 300 UNITS/3 ML VIAL SQ SCH ×3 (07:48→22:16)
[2017-05-03] MEDS: Cholecalciferol (D-3) 1,000 UNIT TABLET PO SCH (07:49)
[2017-05-03] MEDS: Pantoprazole 40 MG VIAL IVP SCH (07:49)
[2017-05-03] MEDS ORDERED: Magnesium Sulfate 2 GM in D5% in Water 100 ML IVPB ONE (11:04)
--- NOTE | 2017-05-03 11:06 | Internal Med Progress Note ---
Date of Encounter: 05/03/17 Time of Encounter: 08:30 - Assessment and plan (1) Severe sepsis Current Visit: Yes Status: Acute Assessment and plan: Severe sepsis, present on admission - secondary to UTI and possible left-sided pneumonia Continue IV fluids, empiric IV Cefepime, IV Levaquin, DuoNeb breathing treatment Cultures - pending CT head - no acute intracranial abnormality, likely chronic small vessel ischemic disease Chest x-ray - mild left peripheral lung base airspace disease Echocardiogram - LVEF 65%, mild LV diastolic dysfunction, mildly dilated LA Lactic acid - 4.9 WBC - 21.5 Cardiac telemetry, labs in a.m., monitor closely (2) Community acquired pneumonia Current Visit: Yes Status: Acute Assessment and plan: Probable community-acquired pneumonia, left-sided, present on admission Plan as above Qualifiers: Qualified Code(s): J18.9 - Pneumonia, unspecified organism (3) AWILDA (acute kidney injury) Current Visit: Yes Status: Acute Assessment and plan: Acute kidney injury likely due to sepsis and possible volume depletion Continue IV fluids, labs in a.m., monitor closely (4) COPD (chronic obstructive pulmonary disease) Current Visit: Yes Status: Chronic Assessment and plan: Probable COPD, history of smoking - not in exacerbation Continue DuoNeb breathing treatment, Symbicort Qualifiers: COPD type: unspecified COPD Qualified Code(s): J44.9 - Chronic obstructive pulmonary disease, unspecified (5) Tobacco abuse Current Visit: Yes Status: Chronic Assessment and plan: Counseled about cessation, nicotine patch (6) Dementia Current Visit: Yes Status: Chronic Assessment and plan: Probable mild to moderate dementia - without behavioral disturbances - patient seems to be at baseline Continue home dose of Namenda Qualifiers: Dementia type: Alzheimer's disease Alzheimer's disease onset: unspecified onset Dementia behavioral disturbance: without behavioral disturbance Qualified Code(s): G30.9 - Alzheimer's disease, unspecified; F02.80 - Dementia in other diseases classified elsewhere without behavioral disturbance; F02.80 - Dementia in other diseases classified elsewhere without behavioral disturbance; F02.80 - Dementia in other diseases classified elsewhere without behavioral disturbance (7) DVT prophylaxis Current Visit: Yes Status: Acute Assessment and plan: Continue heparin subcutaneous - Time Spent With Patient 25 - 35 minutes - Subjective Interval history: Examined this morning. Patient is awake and alert. Not in distress. Denies chest pain or shortness of breath. Tolerating oral diet. Hemodynamically stable. No fever overnight. She states her shortness of breath and cough have now improved. States she feels better. No other acute events or complaints. - Constitutional Vitals: Temp Pulse Resp BP Pulse Ox 97.8 F 83 16 137/75 96 05/03/17 07:38 05/03/17 07:38 05/03/17 07:47 05/03/17 07:38 05/03/17 07:47 General appearance: Present: cooperative, A&O X 3, pleasant, no acute distress, obese, answers questions appropriately - Head Head exam: Present: atraumatic - Eye Eye exam: Present: EOMI - ENT ENT exam: Present: mucous membranes moist - Respiratory Respiratory exam: Present: decreased breath sounds (Slightly decreased in both bases, but otherwise clear). Absent: accessory muscle use, rales, rhonchi, wheezes, tachypnea - Cardiovascular Cardiovascular exam: Present: RRR, +S1, +S2 - GI/Abdominal GI/Abdominal exam: Present: soft (Obese). Absent: distended, firm, guarding, tenderness - Extremities Exam Extremities exam: Present: pedal edema (Mild bilateral), radial pulses palpable and symmetrical. Absent: calf tenderness, cyanotic - Neurological Exam Neurological exam: Present: alert, oriented X3, no focal deficits. Absent: facial droop, speech deficit Internal Medicine: Result - Labs CBC & Chem 7: 05/03/17 02:34 05/03/17 02:34 Labs: Short CBC 05/02/17 05/03/17 Range/Units 11:24 02:34 WBC 14.1 H 21.5 H D (4.3-11.1) K/mcL Hgb 11.9 D 12.2 (11.5-15.4) g/dL Hct 35.8 37.0 (35.3-44.9) % Plt Count 183 179 (140-400) K/mcL Neutrophils # 13.3 H 18.2 H (1.6-8.9) K/mcL BMP 05/02/17 05/03/17 11:24 02:34 Sodium 136 140 Potassium 3.6 4.1 Chloride 105 110 H Carbon Dioxide 20 24 BUN 16 21 H Creatinine 1.19 H 1.16 H Glucose 373 H 134 H Calcium 7.7 L 8.7 Liver Function 05/02/17 Range/Units 11:24 Total Bilirubin 0.3 (0.2-1.2) mg/dL Direct Bilirubin 0.2 (0.0-0.5) mg/dL AST 10 (5-34) Units/L ALT 10 (0-55) Units/L Alkaline Phosphatase 66 (38-126) Units/L Albumin 2.7 L D (3.5-5.0) g/dL - ABG Interpretation ABG results: ABG ABG pH 7.30 pH Units (7.32-7.45) L 05/01/17 22:54 ABG pCO2 42 mmHg (35-45) 05/01/17 22:54 ABG pO2 89 mmHg (85-104) 05/01/17 22:54 ABG O2 Saturation 96 % (95-98) 05/01/17 22:54 PT/INR, D-dimer PT 13.5 Seconds (9.4-12.1) H 05/02/17 11:24 - Impressions Impressions Echocardiogram 05/02/17 22:56 Impressions: LVEF 65%. Hyperdynamic LV Mild left ventricular diastolic dysfunction. Mildly dilated left atrium. Lipomatous interatrial septum. Unable to estimate RVSP due to lack of TR jet. There is a trivial pericardial effusion present. The IVC is dilated, Indicates elevated RAP Left Ventricular Wall Motion: Rest Echo Findings The apex, apical inferior, mid inferior, basal inferior, apical anterior, mid anterior, basal anterior, apical septal, mid inferior septal, basal inferior septal, apical lateral, mid anterior lateral, basal anterior lateral, mid anterior septal, mid inferior lateral, basal anterior septal and basal inferior lateral jones were hyperkinetic. Findings: Study Quality * Technically sub-optimal due to body habitus. ECG Findings * Sinus tachycardia. Left Ventricle * LVEF 65%. * Mild left ventricular diastolic dysfunction. Left Atrium * Mildly dilated left atrium. Right Atrium * Normal right atrial size. Interatrial Septum * Lipomatous interatrial septum. * No evidence of PFO by color Doppler. Aortic Valve * Aortic valve not well visualized. * No aortic regurgitation. * No aortic stenosis. Mitral Valve * Normal mitral valve structure and function. Tricuspid Valve * Unable to estimate RVSP due to lack of TR jet. * Tricuspid valve not well visualized. Pulmonic Valve * Pulmonic valve not well visualized. Aorta * Normally sized aortic root. Pericardium * There is a trivial pericardial effusion present. * There is no echocardiographic evidence of tamponade. IVC * The IVC is dilated. Consult Discharge Plan - Plan Referrals: Cody Arora MD [Primary Care Provider] -
[2017-05-03] MEDS: Nicotine 21 MG PATCH.TD24 TD SCH (11:34)
[2017-05-03] MEDS ORDERED: Ipratropium/Albuterol Neb 3 ML ONE (12:44)
[2017-05-03] MEDS: Ipratropium/Albuterol Neb 3 ML IH ONE ×2 (12:45→16:04)
[2017-05-03] MEDS: Ipratropium/Albuterol Neb 3 ML IH SCH ×2 (17:37→23:22)
[2017-05-03] MEDS: Cefepime HCl 2,000 MG in Water for inj. (sterile) 10 ML IVP SCH (22:14)
[2017-05-03] MEDS ORDERED: Levofloxacin 750 MG/150 ML 750 MG/150 ML BAG IVPB SCH (23:00)
[2017-05-04] MEDS ORDERED: Haloperidol Lactate 5 MG/ML VIAL IVP ONE (00:28)
[2017-05-04] MEDS: Ipratropium/Albuterol Neb 3 ML IH SCH ×4 (03:11→21:51)
[2017-05-04] MEDS: *HR* Heparin 5,000 UNIT/ML VIAL SQ SCH ×3 (06:23→20:54)
[2017-05-04] MEDS: Insulin LISPRO 300 UNITS/3 ML VIAL SQ SCH ×5 (08:03→20:54)
[2017-05-04 08:34] LABS: Basophils % 0.4 %; Eosinophils # 0.5 K/mcL (0.0-0.6); Eosinophils % 4.5 %; Hematocrit 35.3 % (35.3-44.9); Hemoglobin 11.4 g/dL (11.5-15.4); Immature Granulocytes % 0.5 % (0-4); Lymphocytes # 1.8 K/mcL (0.6-4.6); Lymphocytes % 16.8 %; Mean Corpuscular HGB Conc 32.3 g/dL (31.6-35.5); Mean Corpuscular Hemoglobin 28.9 pg (28.0-33.3); Mean Corpuscular Volume 89.6 fL (83.0-100.0); Mean Platelet Volume 10.6 fL (9.4-12.4); Monocytes # 0.7 K/mcL (0.0-1.3); Monocytes % 6.5 %; Neutrophils # 7.8 K/mcL (1.6-8.9); Platelet Count 177 K/mcL (140-400); Red Blood Count 3.94 M/mcL (3.82-4.97); Red Cell Distribution Width 14.3 % (11.5-14.5); Segmented Neutrophils % 71.3 %
[2017-05-04 08:44] LABS: BUN/Creatinine Ratio 23 (6-26); Blood Urea Nitrogen 22 mg/dL (7-20); Calcium 8.1 mg/dL (8.6-10.8); Carbon Dioxide 24 mEq/L (19-29); Chloride 109 mEq/L (98-109); Glucose 107 mg/dL (70-99); Osmolality,Calculated 296 (280-300); Potassium 4.2 mEq/L (3.5-4.5); Sodium 141 mEq/L (136-145); eGFR For African Americans > 60 (> 60); eGFR For Non-African Americans 57 (> 60)
--- NOTE | 2017-05-04 08:54 | Internal Med Progress Note ---
<Farooq Charles - Last Filed: 05/04/17 13:18> Date of Encounter: 05/04/17 Time of Encounter: 08:30 - Assessment and plan (1) Severe sepsis Current Visit: Yes Status: Acute Assessment and plan: Was in respiratory distress on admission meeting SIRS criteria as well as elevated lactate WBC Ct normal today Etiology: possible LLL CAP vs UTI; urine culture negative, blood culture negative, sputum culture positive pending sensitivity Continue IVF & IV abx (cefepime, levaquin, vancomycin) Will tailor antibiotics as needed upon sensitivity report of sputum culture (2) Dementia Current Visit: Yes Status: Chronic Assessment and plan: patient restates concerns and repeatedly calls out for help wishing to discuss home discharge consulted with PT/OT & SW who feel patient would benefit at least from short- term SNF placement discussed with patient and son who are agreeable to this plan will follow PT/OT/SW for status of placement concerning ADLs, O2 qualification is pending and home O2 may be necessary on discharge; will prescribe if needed Qualifiers: Dementia type: Alzheimer's disease Alzheimer's disease onset: unspecified onset Dementia behavioral disturbance: without behavioral disturbance Qualified Code(s): G30.9 - Alzheimer's disease, unspecified; F02.80 - Dementia in other diseases classified elsewhere without behavioral disturbance; F02.80 - Dementia in other diseases classified elsewhere without behavioral disturbance; F02.80 - Dementia in other diseases classified elsewhere without behavioral disturbance (3) Community acquired pneumonia Current Visit: Yes Status: Acute Assessment and plan: CXR shows LLL PNA vs atelectasis Was in respiratory distress on admission meeting SIRS criteria as well as elevated lactate Sputum culture positive pending sensitivity Continue IVF & IV abx (cefepime, levaquin, vancomycin) Qualifiers: Qualified Code(s): J18.9 - Pneumonia, unspecified organism (4) Tobacco abuse Current Visit: Yes Status: Chronic Assessment and plan: counseled smoking cessation (5) AWILDA (acute kidney injury) Current Visit: Yes Status: Acute Assessment and plan: renal function normalized cont monitor BMP qAM (6) COPD (chronic obstructive pulmonary disease) Current Visit: Yes Status: Chronic Assessment and plan: probable COPD, significant smoking history; will need further eval on OP basis cont O2 supplementation via NC PRN ordered 6-min ambulatory O2 qualification cont duonebs & symbicort Qualifiers: COPD type: unspecified COPD Qualified Code(s): J44.9 - Chronic obstructive pulmonary disease, unspecified (7) Hyperglycemia, unspecified Current Visit: Yes Status: Acute Assessment and plan: No known h/o DM A1C 5.7 this AM FSBG approx 100-200 cont on SSI doubt need for antihyperglycemics on discharge (8) DVT prophylaxis Current Visit: Yes Status: Acute Assessment and plan: cont subQ heparin - Time Spent With Patient 25 - 35 minutes (patient repeatedly calls out for help; ongoing assessment and disposition planning was explained to patient multiple times. Has h/o dementia. ) - Subjective Interval history: On 2 L nasal cannula saturated 96%. Conversational speaking full sentences without any enhanced respiratory effort. AM labs, including CBC and basic, normalizing with normal white count and [id number] renal function. Patient states subjectively feels better. Does not feel short of breath at this time. Is not having any pain or other complaints currently. Quite strongly requests to be discharged home today. Patient does repeatedly call out for help and when I answer, she repeats the same concerns, namely the desire to go home. Have repeatedly discussed further evaluation and disposition planning. Does have h/o dementia. Reviewed prior PT and OT notes which suggested patient might require further therapy as well as a walker to improve ADLs at home. OT previously suggested discharge to SNF; SW discussed with patient and son who are agreeable for short- term SNF placement. Otherwise, overnight course uneventful with normal vital signs and reasonably well-controlled FSBG levels. - Constitutional Vitals: Temp Pulse Resp BP Pulse Ox 98.3 F 87 19 123/70 97 05/04/17 07:00 05/04/17 07:00 05/04/17 07:00 05/04/17 07:00 05/04/17 07:43 General appearance: Present: cooperative, A&O X 3, pleasant, no acute distress, answers questions appropriately - Head Head exam: Present: atraumatic, normocephalic - Eye Eye exam: Present: PERRL, conjuntiva pink, sclera anicteric. Absent: conjunctival injection - Neck Neck exam general surgery: Present: supple, trachea midline. Absent: lymphadenopathy - Respiratory Respiratory exam: Present: CTAB, wheezes (Slight expiratory wheeze heard throughout; no inspiratory component.). Absent: accessory muscle use, rales, respiratory distress, rhonchi, stridor, tachypnea - Cardiovascular Cardiovascular exam: Present: RRR, +S1, +S2. Absent: diastolic murmur, gallop, rubs, systolic murmur Additional comments: Strong 2+ radial pulses equal symmetrically. - GI/Abdominal GI/Abdominal exam: Present: soft. Absent: distended, tenderness - Extremities Exam Extremities exam: Present: warm, radial pulses palpable and symmetrical. Absent : cyanotic, pedal edema - Neurological Exam Neurological exam: Present: oriented X3, no focal deficits. Absent: facial droop, speech deficit Additional comments: Patient freely moves all 4 extremities and has no apparent facial palsy; no gross motor dysfunction. Patient is AOx3, conversational, and appropriately answers all questions - Skin Skin exam: Present: dry, intact, normal color. Absent: cyanosis, diaphoretic, mottled, pallor Internal Medicine: Result - Labs CBC & Chem 7: 05/04/17 06:30 05/04/17 06:30 Labs: Short CBC 05/04/17 Range/Units 06:30 WBC 11.0 (4.3-11.1) K/mcL Hgb 11.4 L (11.5-15.4) g/dL Hct 35.3 (35.3-44.9) % Plt Count 177 (140-400) K/mcL Neutrophils # 7.8 (1.6-8.9) K/mcL BMP 05/04/17 06:30 Sodium 141 Potassium 4.2 Chloride 109 Carbon Dioxide 24 BUN 22 H Creatinine 0.94 Glucose 107 H Calcium 8.1 L Laboratory Last Values WBC 11.0 K/mcL (4.3-11.1) 05/04/17 06:30 RBC 3.94 M/mcL (3.82-4.97) 05/04/17 06:30 Hgb 11.4 g/dL (11.5-15.4) L 05/04/17 06:30 Hct 35.3 % (35.3-44.9) 05/04/17 06:30 MCV 89.6 fL (83.0-100.0) 05/04/17 06:30 MCH 28.9 pg (28.0-33.3) 05/04/17 06:30 MCHC 32.3 g/dL (31.6-35.5) 05/04/17 06:30 RDW 14.3 % (11.5-14.5) 05/04/17 06:30 Plt Count 177 K/mcL (140-400) 05/04/17 06:30 MPV 10.6 fL (9.4-12.4) 05/04/17 06:30 Immature Gran % 0.5 % (0-4) 05/04/17 06:30 Seg Neutrophils % 71.3 % 05/04/17 06:30 Lymphocytes % 16.8 % 05/04/17 06:30 Monocytes % 6.5 % 05/04/17 06:30 Eosinophils % 4.5 % 05/04/17 06:30 Basophils % 0.4 % 05/04/17 06:30 Neutrophils # 7.8 K/mcL (1.6-8.9) 05/04/17 06:30 Lymphocytes # 1.8 K/mcL (0.6-4.6) 05/04/17 06:30 Monocytes # 0.7 K/mcL (0.0-1.3) 05/04/17 06:30 Eosinophils # 0.5 K/mcL (0.0-0.6) 05/04/17 06:30 Basophils # 0.0 K/mcL (0.0-0.2) 05/04/17 06:30 Nucleated RBCs/100 WBC 0.1 /100 WBC (0) H 05/01/17 18:27 Immature Plt Fraction 1.9 % (1.1-6.1) 05/02/17 11:24 PT 13.5 Seconds (9.4-12.1) H 05/02/17 11:24 INR 1.2 05/02/17 11:24 APTT 26.4 Seconds (26.0-36.0) 05/02/17 11:24 ABG pH 7.30 pH Units (7.32-7.45) L 05/01/17 22:54 ABG pCO2 42 mmHg (35-45) 05/01/17 22:54 ABG pO2 89 mmHg (85-104) 05/01/17 22:54 ABG HCO3 20 mEq/L (21-27) L 05/01/17 22:54 ABG Total CO2 22 mEq/L (20-26) 05/01/17 22:54 ABG O2 Saturation 96 % (95-98) 05/01/17 22:54 ABG Base Excess -6 mEq/L (-2 to 3) L 05/01/17 22:54 Murray Test Positive 05/01/17 22:54 O2 Delivery Device Cannula 05/01/17 22:54 Inspired O2 32.0 (1-15=lpm ok14-369=%) 05/01/17 22:54 Sodium 141 mEq/L (136-145) 05/04/17 06:30 Potassium 4.2 mEq/L (3.5-4.5) 05/04/17 06:30 Chloride 109 mEq/L (98-109) 05/04/17 06:30 Carbon Dioxide 24 mEq/L (19-29) 05/04/17 06:30 BUN 22 mg/dL (7-20) H 05/04/17 06:30 Creatinine 0.94 mg/dL (0.57-1.11) 05/04/17 06:30 Est GFR ( Amer) > 60 (> 60) 05/04/17 06:30 Est GFR (Non-Af Amer) 57 (> 60) L 05/04/17 06:30 BUN/Creatinine Ratio 23 (6-26) 05/04/17 06:30 Glucose 107 mg/dL (70-99) H 05/04/17 06:30 POC Glucose 189 (58-89) H 05/03/17 20:22 Calculated Osmolality 296 (280-300) 05/04/17 06:30 Lactic Acid 2.1 mmol/L (0.5-2.2) 05/04/17 06:30 Calcium 8.1 mg/dL (8.6-10.8) L 05/04/17 06:30 Phosphorus 2.5 mg/dL (2.3-4.7) 05/01/17 18:27 Magnesium 1.9 mg/dL (1.6-2.6) 05/04/17 06:30 Total Bilirubin 0.3 mg/dL (0.2-1.2) 05/02/17 11:24 Direct Bilirubin 0.2 mg/dL (0.0-0.5) 05/02/17 11:24 Indirect Bilirubin 0.1 mg/dL (0.0-1.2) 05/02/17 11:24 AST 10 Units/L (5-34) 05/02/17 11:24 ALT 10 Units/L (0-55) 05/02/17 11:24 Alkaline Phosphatase 66 Units/L (38-126) 05/02/17 11:24 Creatine Kinase 122 Units/L (29-168) 05/02/17 04:29 Troponin I 0.03 ng/mL (0-0.03) 05/02/17 04:29 B-Natriuretic Peptide 123 pg/mL (0-100) H 05/01/17 18:27 Serum Total Protein 5.4 g/dL (6.0-8.3) L D 05/02/17 11:24 Albumin 2.7 g/dL (3.5-5.0) L D 05/02/17 11:24 Globulin 2.7 g/dL (2.4-3.5) 05/02/17 11:24 Albumin/Globulin Ratio 1.0 (1.1-2.2) L 05/02/17 11:24 Urine Color Yellow (Yellow) 05/01/17 18:28 Urine Clarity Clear (Clear) 05/01/17 18:28 Urine pH 6.0 pH Units (5.0-8.0) 05/01/17 18:28 Ur Specific [place] 1.019 (1.010-1.025) 05/01/17 18:28 Urine Protein Negative mg/dL (Neg-Trace) 05/01/17 18:28 Urine Glucose (UA) Normal mg/dL (Normal) 05/01/17 18:28 Urine Ketones Trace mg/dL (Negative) H 05/01/17 18:28 Urine Blood Negative (Negative) 05/01/17 18:28 Urine Nitrite Negative (Negative) 05/01/17 18:28 Urine Bilirubin Negative (Negative) 05/01/17 18:28 Urine Urobilinogen Normal mg/dL (Normal) 05/01/17 18:28 Ur Leukocyte Esterase Trace (Negative) H 05/01/17 18:28 Urine Microscopic RBC 0-3 per hpf (0-3) 05/01/17 18:28 Urine Microscopic WBC 0-3 per hpf (0-3) 05/01/17 18:28 Ur Squamous Epith Cells Many per lpf (None-Few) H 05/01/17 18:28 Urine Bacteria None Seen per hpf (None-Few) 05/01/17 18:28 Hyaline Casts None Seen per lpf (None-Few) 05/01/17 18:28 Ur Culture Indicated? YES (NO) A 05/01/17 18:28 - ABG Interpretation ABG results: ABG ABG pH 7.30 pH Units (7.32-7.45) L 05/01/17 22:54 ABG pCO2 42 mmHg (35-45) 05/01/17 22:54 ABG pO2 89 mmHg (85-104) 05/01/17 22:54 ABG O2 Saturation 96 % (95-98) 05/01/17 22:54 PT/INR, D-dimer PT 13.5 Seconds (9.4-12.1) H 05/02/17 11:24 Consult Discharge Plan - Plan Referrals: Cody Arora MD [Primary Care Provider] - <Kimani Clarke - Last Filed: 05/04/17 15:59> Date of Encounter: 05/04/17 - Assessment and plan (1) Severe sepsis Current Visit: Yes Status: Acute (2) Community acquired pneumonia Current Visit: Yes Status: Acute Qualifiers: Qualified Code(s): J18.9 - Pneumonia, unspecified organism (3) AWILDA (acute kidney injury) Current Visit: Yes Status: Acute (4) COPD (chronic obstructive pulmonary disease) Current Visit: Yes Status: Chronic Qualifiers: COPD type: unspecified COPD Qualified Code(s): J44.9 - Chronic obstructive pulmonary disease, unspecified (5) Tobacco abuse Current Visit: Yes Status: Chronic (6) Dementia Current Visit: Yes Status: Chronic Qualifiers: Dementia type: Alzheimer's disease Alzheimer's disease onset: unspecified onset Dementia behavioral disturbance: without behavioral disturbance Qualified Code(s): G30.9 - Alzheimer's disease, unspecified; F02.80 - Dementia in other diseases classified elsewhere without behavioral disturbance; F02.80 - Dementia in other diseases classified elsewhere without behavioral disturbance; F02.80 - Dementia in other diseases classified elsewhere without behavioral disturbance (7) DVT prophylaxis Current Visit: Yes Status: Acute - Constitutional Vitals: Temp Pulse Resp BP Pulse Ox 98.1 F 93 18 127/63 96 05/04/17 11:28 05/04/17 14:26 05/04/17 15:28 05/04/17 11:28 05/04/17 15:28 Internal Medicine: Result - Labs CBC & Chem 7: 05/04/17 06:30 05/04/17 06:30 Labs: Short CBC 05/04/17 Range/Units 06:30 WBC 11.0 (4.3-11.1) K/mcL Hgb 11.4 L (11.5-15.4) g/dL Hct 35.3 (35.3-44.9) % Plt Count 177 (140-400) K/mcL Neutrophils # 7.8 (1.6-8.9) K/mcL BMP 05/04/17 06:30 Sodium 141 Potassium 4.2 Chloride 109 Carbon Dioxide 24 BUN 22 H Creatinine 0.94 Glucose 107 H Calcium 8.1 L - ABG Interpretation ABG results: ABG ABG pH 7.30 pH Units (7.32-7.45) L 05/01/17 22:54 ABG pCO2 42 mmHg (35-45) 05/01/17 22:54 ABG pO2 89 mmHg (85-104) 05/01/17 22:54 ABG O2 Saturation 96 % (95-98) 05/01/17 22:54 PT/INR, D-dimer PT 13.5 Seconds (9.4-12.1) H 05/02/17 11:24 - Attending Attestation I examined this patient and my medical decision-making was reviewed with the Resident Physician. I agree with the documented findings, disposition and treatment plan as described except to the extent set forth below. I have seen and examined the patient. She is awake and alert. Not in any distress. She denies chest pain or shortness of breath. Tolerating oral diet well. Ambulating with assistance. She does have intermittent episodes of confusion, likely due to mild to moderate dementia. She is hemodynamically stable. No fever. Anticipate discharge to ECF soon. Patient's daughter has been explained about her condition and plan of care. She understood and agreed. Heart rate 93, blood pressure 120 7063, O2 sat 96% on 2 L O2. Heart S1-S2 positive. Lungs bilateral good air entry mild wheezing bilaterally. Abdomen - soft nontender. Extremities - all pulses strong and regular no edema. Neurological - patient is able to move all extremities, no speech deficits, she is awake and alert and oriented, does have intermittent episodes of confusion likely due to mild to moderate dementia.
[2017-05-04] MEDS: Nicotine 21 MG PATCH.TD24 TD SCH (10:20)
[2017-05-04] MEDS: Pantoprazole 40 MG VIAL IVP SCH (10:22)
[2017-05-04] MEDS: Ringers Solution, Lactated 1,000 ML IVC SCH (10:22)
[2017-05-04] MEDS: Cholecalciferol (D-3) 1,000 UNIT TABLET PO SCH (10:22)
[2017-05-04] MEDS: Budesonide/Formoterol 160/4.5 MDI IH SCH ×2 (10:25→21:52)
[2017-05-04 12:45] LABS: Hemoglobin A1C 5.7 %
[2017-05-04 15:12] LABS: CK-BB (CK isoenzymes) 0 % (0-0); CK-MB (CK isoenzymes) 0 % (0-4); CK-MM (CK-isoenzymes) 100 % (96-100)
[2017-05-05] MEDS: Ipratropium/Albuterol Neb 3 ML IH SCH ×2 (04:35→09:57)
[2017-05-05] MEDS: *HR* Heparin 5,000 UNIT/ML VIAL SQ SCH (05:01)
[2017-05-05 07:15] LABS: CK Total (Ck Isoenzymes) 125 U/L (20-180)
[2017-05-05] MEDS: Cholecalciferol (D-3) 1,000 UNIT TABLET PO SCH (08:24)
[2017-05-05] MEDS: Nicotine 21 MG PATCH.TD24 TD SCH (08:27)
[2017-05-05] MEDS: Insulin LISPRO 300 UNITS/3 ML VIAL SQ SCH ×2 (08:35→11:58)
--- NOTE | 2017-05-05 08:51 | Internal Med Progress Note ---
Date of Encounter: 05/05/17 Time of Encounter: 08:46 - Assessment and plan (1) Severe sepsis Current Visit: Yes Status: Acute (2) Dementia Current Visit: Yes Status: Chronic Qualifiers: Dementia type: Alzheimer's disease Alzheimer's disease onset: unspecified onset Dementia behavioral disturbance: without behavioral disturbance Qualified Code(s): G30.9 - Alzheimer's disease, unspecified; F02.80 - Dementia in other diseases classified elsewhere without behavioral disturbance; F02.80 - Dementia in other diseases classified elsewhere without behavioral disturbance; F02.80 - Dementia in other diseases classified elsewhere without behavioral disturbance (3) Community acquired pneumonia Current Visit: Yes Status: Acute Qualifiers: Qualified Code(s): J18.9 - Pneumonia, unspecified organism (4) Tobacco abuse Current Visit: Yes Status: Chronic (5) AWILDA (acute kidney injury) Current Visit: Yes Status: Acute (6) COPD (chronic obstructive pulmonary disease) Current Visit: Yes Status: Chronic Qualifiers: COPD type: unspecified COPD Qualified Code(s): J44.9 - Chronic obstructive pulmonary disease, unspecified (7) Hyperglycemia, unspecified Current Visit: Yes Status: Acute (8) DVT prophylaxis Current Visit: Yes Status: Acute - Subjective Interval history: Uneventful overnight course. Patient oxygenating above 93% without nasal cannula while at rest. A.m. labs normal. 02 qualification pending. Patient's son present at bedside on a.m. encounter. Discussed patient's home life and ADLs was son. Son states that for several months, patient has been somnolent and lacking in energy not wanting to get out of bed or do anything out of the house. Patient has had extensive psychiatric evaluation including multiple pharmacologic trials attempted for possible depression. Patient continues to be sedentary at home, but son does state the patient is becoming somewhat more active enjoying breakfast with him most mornings. Patient does live alone, but is checked on by her daughter who lives next door and is an RN. Patient's son also notes the patient does often have difficulty ambulating around the house becoming dyspneic and needing to sit down to catch her breath; this is not a new problem and has been ongoing and stable for some time. Apparently, daughter is expected to visit this morning with patient and social sciences professor to discuss/determine preferred SNF placement, which is recommended by PT/ OT as well as SW. - Constitutional Vitals: Temp Pulse Resp BP Pulse Ox 98.6 F 85 16 147/71 92 05/05/17 07:20 05/05/17 07:20 05/05/17 07:20 05/05/17 07:20 05/05/17 07:20 General appearance: Present: cooperative, A&O X 3, pleasant, no acute distress, answers questions appropriately Internal Medicine: Result - Labs CBC & Chem 7: 05/04/17 06:30 05/04/17 06:30 Labs: BMP 05/04/17 06:30 Sodium 141 Potassium 4.2 Chloride 109 Carbon Dioxide 24 BUN 22 H Creatinine 0.94 Glucose 107 H Calcium 8.1 L Cardiac Enzymes 05/02/17 Range/Units 04:29 CK-MB (CK-2) 0 (0-4) % - ABG Interpretation ABG results: ABG ABG pH 7.30 pH Units (7.32-7.45) L 05/01/17 22:54 ABG pCO2 42 mmHg (35-45) 05/01/17 22:54 ABG pO2 89 mmHg (85-104) 05/01/17 22:54 ABG O2 Saturation 96 % (95-98) 05/01/17 22:54 PT/INR, D-dimer PT 13.5 Seconds (9.4-12.1) H 05/02/17 11:24 Consult Discharge Plan - Plan Referrals: Cody Arora MD [Primary Care Provider] -
--- NOTE | 2017-05-05 09:09 | Discharge Summary ---
<Farooq Charles - Last Filed: 05/05/17 10:07> Date of Encounter: 05/05/17 Time of Encounter: 08:45 - Discharge Diagnosis (1) Severe sepsis Priority: Primary Status: Acute Comments: Resolved: VSS; WBC count normal on most recent labs & all cultures negative including urine, sputum, and blood cx (2) Community acquired pneumonia Priority: Secondary Status: Acute Comments: admitted initially in respiratory distress/failure with +SIRS & elevated lactate likely bacterial etiology -- treated with IV abx & IVF throughout hospital course WBC normal on 05/04/17; all cultures negative including Urine/Sputum/Blood Today, patient is oxygenating well at rest and subjectively feeling better Pending O2 ambulatory challenge and may dispo with home O2 as needed Will discharge to SNF due to other factors with continued PO course of Levaquin Qualifiers: Laterality: left Lung location: lower lobe of lung Qualified Code(s): J18.1 - Lobar pneumonia, unspecified organism (3) Dementia Priority: Secondary Status: Chronic Comments: has had some confusion throughout hospital course son present at bedside states patient is at baseline Qualifiers: Dementia type: Alzheimer's disease Alzheimer's disease onset: unspecified onset Dementia behavioral disturbance: without behavioral disturbance Qualified Code(s): G30.9 - Alzheimer's disease, unspecified; F02.80 - Dementia in other diseases classified elsewhere without behavioral disturbance; F02.80 - Dementia in other diseases classified elsewhere without behavioral disturbance; F02.80 - Dementia in other diseases classified elsewhere without behavioral disturbance (4) AWILDA (acute kidney injury) Priority: Secondary Status: Acute Comments: creatinine normal; BUN improving and near normal (5) COPD (chronic obstructive pulmonary disease) Priority: Secondary Status: Chronic Comments: will require further evaluation on OP basis pt is chronic smoker who is likely O2 dependent; pending 6-min O2 qualification Qualifiers: COPD type: unspecified COPD Qualified Code(s): J44.9 - Chronic obstructive pulmonary disease, unspecified (6) Hyperglycemia, unspecified Priority: Secondary Status: Acute Comments: A1C is 5.7 follow up on OP basis with PCP no further intervention at this time (7) Tobacco abuse Priority: Secondary Status: Chronic Comments: counseled smoking cessation (8) DVT prophylaxis Priority: Secondary Status: Acute Comments: has been addressed with subQ heparin - Discharge Medications Prescriptions: levoFLOXacin [Levaquin] 500 mg PO DAILY 3 Days #3 tablet Home Medications: Calcium Carbonate/Vitamin D3 [Calcium 600-Vit D3 800 Tablet] 1 each PO BID 05/01 [History] Cholecalciferol (D-3) [Vitamin D] 1,000 unit PO DAILY 05/01/17 [History] Loratadine [Claritin] 10 mg PO DAILY 05/01/17 [History] Losartan Potassium [Cozaar] 50 mg PO DAILY 05/01/17 [History] Memantine HCl [Namenda Xr] 28 mg PO DAILY 05/01/17 [History] Polymyxn-B/Trimeth Opth Drops [Polytrim Opth Drops] 1 drop RIGHT EYE Q3H [History] Potassium Chloride [Klor-Con 10] 10 meq PO AD 05/01/17 [History] Tolterodine LA (24 HR) [Detrol LA] 2 mg PO DAILY 05/01/17 [History] Vit C/E/Zn/Coppr/Lutein/Zeaxan [Preservision Areds 2 Softgel] 1 cap PO BID 05/01 [History] hydroCHLOROthiazide [Hydrochlorothiazide] 12.5 mg PO MOWEFR 05/01/17 [History] levoFLOXacin [Levaquin] 500 mg PO DAILY 3 Days #3 tablet 05/05/17 [Rx] Allergies/Adverse Reactions: 3 Allergy/AdvReac Type Severity Reaction Status Date / Time Penicillins [PCN] Allergy Rash Verified 05/01/17 17:39 Procedures/tests Complete & Pendin minute ambulatory 02 qualification Date of admission: 05/02/17 00:04 Primary care physician: Cody Arora MD Consults: 05/04/17 10:47 Consult to [employer] [CONS] Routine Reason for SW Consult: 81F, lives at home, may need HH vs rehab on discharge Discharging clinician: Farooq Charles Anticipated date of discharge: 05/05/17 - Patient Status Disposition: Transfer SNF Condition: Fair Functional capacity at discharge: uses cane/walker Overall status at discharge: patient is back to baseline - Discharge Instructions Instructions: Levofloxacin (By mouth) Follow Up With: Cody Arora [Other] - 05/12/17 10:00 am (This is located beside [facility]) Forms: ED Satisfaction Letter Additional Instructions: follow up with your primary doctor within 1-2 weeks continue your course of PO Levaquin 500 mg one tablet/capsule daily for the next 3 days ambulate with assistance using your walker as instructed by PT/OT advanced diet as tolerated attempt to reduce smoking as discussed - Diet and Activity Activity: ambulate only with your walker, as per physical therapy, other Diet: regular diet Interval History: Symptomatically stable/improved. Seated at bedside eating breakfast without nasal cannula saturating 94% on room air. Son present states patient is back to baseline mentation. Patient has been working with physical therapy and occupational therapy who state that the patient is a fall risk and could benefit from use of FWW. Ambulatory 02 qualification pending. Organically, patient is at baseline. Will discharge from hospital service on continued three-day course of PO Levaquin 500 mg daily. SNF placement pending; daughter will discuss with social worker clinical. Hospital course: Ms. Carver is a 81 year old female initially admitted for severe sepsis secondary to presumed left lower lobe bacterial community acquired pneumonia; patient was initially respiratory failure requiring BiPAP and significant 02 via nasal cannula. Notable history does include significant multi-decade pack your history with probable underlying undiagnosed COPD. Patient was started on triple IV antibiotic tx including cefipime, Levaquin, and vancomycin. White blood cell count though initially elevated has returned to normal. Renal function is near baseline at this time. All cultures are negative including sputum, urine, and blood. Patient has improved over hospital course and is near her overall functional baseline. Patient has worked with PT/OT as well as social work feel that patient is a fall risk and would benefit from use of FWW and temp SNF placement. Stable and will discharge with continued course of Levofloxacin for additional 3 days. Time spent discussing smoking cessation with patient: 3 to 10 minutes - Time Spent with Patient Total time spent providing and/or coordinating discharge services: Less than 30 minutes - Constitutional Vitals: Temp Pulse Resp BP Pulse Ox 98.6 F 85 16 147/71 92 05/05/17 07:20 05/05/17 07:20 05/05/17 07:20 05/05/17 07:20 05/05/17 07:20 General appearance: Present: cooperative, A&O X 3, pleasant, no acute distress, answers questions appropriately - Head Head exam: Present: atraumatic, normocephalic - Eye Eye exam: Present: PERRL, conjuntiva pink, sclera anicteric - Neck Neck exam general surgery: Present: supple, trachea midline - Respiratory Respiratory exam: Present: CTAB. Absent: accessory muscle use, rales, respiratory distress, rhonchi, stridor, wheezes, tachypnea - Cardiovascular Cardiovascular exam: Present: RRR, +S1, +S2. Absent: diastolic murmur, gallop, rubs, systolic murmur - GI/Abdominal GI/Abdominal exam: Present: soft. Absent: tenderness - Extremities Exam Extremities exam: Present: warm, radial pulses palpable and symmetrical. Absent : calf tenderness, cyanotic, pedal edema - Neurological Exam Neurological exam: Present: oriented X3, no focal deficits. Absent: facial droop, speech deficit - Skin Skin exam: Present: dry, intact, normal color. Absent: cyanosis, diaphoretic <Thallapaneni,Rambabu - Last Filed: 05/05/17 17:52> Date of Encounter: 05/05/17 Date of admission: 05/02/17 00:04 Primary care physician: Cody Arora MD Consults: 05/04/17 10:47 Consult to [employer] [CONS] Routine Reason for SW Consult: 81F, lives at home, may need HH vs rehab on discharge Hospital course: Ms. Carver is a 81 year old female - Time Spent with Patient Total time spent providing and/or coordinating discharge services: - Constitutional Vitals: Temp Pulse Resp BP Pulse Ox 98.6 F 106 20 130/62 90 05/05/17 11:15 05/05/17 11:15 05/05/17 11:15 05/05/17 11:15 05/05/17 11:15 - Attending Attestation I examined this patient and my medical decision-making was reviewed with the Resident Physician. I agree with the documented findings, disposition and treatment plan as described except to the extent set forth below. This is an 81 y/o F admited with acute hyoxic resp failure with pneumonia. She was started on empirical abx and duoneb. Her symptoms started improving lowly. Today she is able to breath comfortably on RA, feels like back to her baseline. She was evaluated by PT / OT, who recommend fo short term PT / OT at rehab center. So will d/c her to ECF today in stable condition with PO levofloxacin 500mg daily for 3 more days.
[2017-05-05] MEDS: Budesonide/Formoterol 160/4.5 MDI IH SCH (09:57)
[2017-05-05] MEDS: Pantoprazole 40 MG VIAL IVP SCH (10:03)
--- NOTE | 2017-05-05 10:45 | Physician Discharge Referral ---
ExtendedCare Referral Info Transfer To: ECF Provider in Charge: Farooq Charles Provider in Charge after Transfer: PCP Institutional Level of Care: Skilled - Diagnosis (1) Severe sepsis Priority: Primary Status: Acute (2) Community acquired pneumonia Priority: Secondary Status: Acute (3) Dementia Priority: Secondary Status: Chronic (4) AWILDA (acute kidney injury) Priority: Secondary Status: Acute (5) COPD (chronic obstructive pulmonary disease) Priority: Secondary Status: Chronic (6) Hyperglycemia, unspecified Priority: Secondary Status: Acute (7) Tobacco abuse Priority: Secondary Status: Chronic (8) DVT prophylaxis Priority: Secondary Status: Acute Expected Duration of Placement: 1-2 weeks Prognosis: Fair Aware of Diagnosis: Patient, Family Aware of Prognosis: Patient, Family - Transfer Medications Prescriptions: levoFLOXacin [Levaquin] 500 mg PO DAILY 3 Days #3 tablet Home Medications: Calcium Carbonate/Vitamin D3 [Calcium 600-Vit D3 800 Tablet] 1 each PO BID 05/01 [History] Cholecalciferol (D-3) [Vitamin D] 1,000 unit PO DAILY 05/01/17 [History] Loratadine [Claritin] 10 mg PO DAILY 05/01/17 [History] Losartan Potassium [Cozaar] 50 mg PO DAILY 05/01/17 [History] Memantine HCl [Namenda Xr] 28 mg PO DAILY 05/01/17 [History] Polymyxn-B/Trimeth Opth Drops [Polytrim Opth Drops] 1 drop RIGHT EYE Q3H [History] Potassium Chloride [Klor-Con 10] 10 meq PO AD 05/01/17 [History] Tolterodine LA (24 HR) [Detrol LA] 2 mg PO DAILY 05/01/17 [History] Vit C/E/Zn/Coppr/Lutein/Zeaxan [Preservision Areds 2 Softgel] 1 cap PO BID 05/01 [History] hydroCHLOROthiazide [Hydrochlorothiazide] 12.5 mg PO MOWEFR 05/01/17 [History] levoFLOXacin [Levaquin] 500 mg PO DAILY 3 Days #3 tablet 05/05/17 [Rx] Allergies/Adverse Reactions: 3 Allergy/AdvReac Type Severity Reaction Status Date / Time Penicillins [PCN] Allergy Rash Verified 05/01/17 17:39 - Respiratory Orders Smoking Cessation: Smoking cessation has been advised. For more information, call the [place] Tobacco Quit Line at 3-135-CDRX-NOW. - Ancillary Orders May use pressure relief devices daily prn, May go on KIKA w/family/respon constitution party w /meds at nurse discretion PRN, May consult with Dentist, Oceanographer Physical, Aerial Sprayer PRN - Advance Directives Code Status: Full Code - Mobility Orders Ambulate (with FWW and assistance) - Rehabiliation Orders Rehab Potential: Fair Rehab Orders: Sternal Precautions, ROM Exercises, Evaluation for Physical Therapy, Evaluation for Occupational Therapy - Treatments Skin tear care topically daily PRN per policy, May check for fecal impaction rectally daily PRN, Fleet enema rectally every other day PRN cleansing purposes - Diet Orders Regular CERTIFICATION: I certify that the transfer of the above named patient to an Extended Care Facility is necessary for the continuing treatment of the diagnosis listed. The above information is true and accurate reflection of patient's current condition. Confidential - Redisclosure prohibited without a patient's written consent.
[2017-05-05 11:27] VITALS: BP 130/62
[2017-05-05] MEDS ORDERED: FLUARIX QUAD 2017-18 36MOS UP/PF 0.5 ML SYRINGE IM ONE (12:22)
[2017-05-05] MEDS ORDERED: Aminoglycoside Consult 1 EACH MC ONE (14:22)
--- NOTE | 2017-05-07 09:44 | Electrocardiograph Report ---
[address] [address] Test Date: 2017-05-01 Pat Name: Tona Carver Department: [id number] Room: 2N03 Gender: F Invoice Coder: SHARLA : 1935 Requested By: Ariana See Order Number: [id number] Reading MD: Demetra Mcnair Measurements Intervals [place] Rate: 109 P: 47 SD: 156 QRS: 74 QRSD: 82 T: 53 QT: 323 QTc: 387 Interpretive Statements SINUS TACHYCARDIA LOW QRS VOLTAGE IN PRECORDIAL LEADS [QRS DEFLECTION < 1.0 mV IN CHEST LEADS] MINIMAL ST DEPRESSION [0.025+ mV ST DEPRESSION] ABNORMAL RHYTHM ECG Electronically Signed On 05-07-2017 9:43:27 EDT by Demetra Mcnair
== END 2017-05-05 14:23 | DRG 871 ==
LOC: 2NENU 17:17 → EMEROO 17:17 → ICNU 22:42 → SUATTDRO 05-02 00:04 → 2NNU 05-02 09:39
PROVIDERS: ADMIT Family Medicine; ATTEND Family Medicine

== ENCOUNTER 2018-10-11 19:21 | Inpatient (IN) ==
[2018-10-11] MEDS ORDERED: Isovue-370 500 ML BOTTLE IVP ONE (20:02)
[2018-10-11] MEDS ORDERED: Ipratropium/Albuterol Neb 3 ML IH ONE (20:04)
[2018-10-11] MEDS ORDERED: methylPREDNISolone 125 MG/2 ML VIAL IVP ONE (20:04)
--- NOTE | 2018-10-11 20:17 | Emergency Department Note ---
Disposition Clinical Impression: Hypoxia, Elevated troponin Sepsis Qualifiers: Sepsis type: sepsis due to unspecified organism Qualified Code(s): A41.9 - Sepsis, unspecified organism Community acquired pneumonia Qualifiers: Laterality: unspecified laterality Qualified Code(s): J18.9 - Pneumonia, unspecified organism Disposition: Admitted As Inpatient Condition: Good Time of Disposition: 23:04 SOB HPI - General Chief Complaint: ED Shortness of Breath/Dyspnea Stated Complaint: Poss. Pneumonia/Sent From [facility] Time Seen by Provider: 10/11/18 19:38 Source: patient, family ( and daughter) Limitations: no limitations Nursing Notes Reviewed: Yes Vital Signs Reviewed: Yes - History of Present Illness 82-year-old female history of hypertension and COPD presents to the emergency department with dyspnea and weakness. Reports over the past 3 days increase worker breathing and weakness. She has home health care and has been requiring a wheelchair to move around. She has fallen 2 times due to the weakness. No reports of cough. Denies any chest pain. Daughter note some swelling to the feet that is worsen usual. No history of heart failure. Denies any headache nausea or vomiting. She has a significant smoking history but does not use any inhalers for her presumed COPD. She was found to be 90% on 2 L in triage. She does not wear any home oxygen. Family states approximately 16 months ago she presented similar was found to have pneumonia. Denies history of blood clots, lung distance travel, recent hospitalization or cancer. Pt Subjective Complaint: shortness of breath - Related Data Home Medications Medication Instructions Recorded Confirmed Calcium Carbonate/Vitamin D3 1 each PO BID 05/01/17 10/12/18 [Calcium 600-Vit D3 800 Tablet] Cholecalciferol (D-3) [Vitamin D] 1,000 unit PO DAILY 05/01/17 10/12/18 Memantine HCl [Namenda Xr] 28 mg PO DAILY 05/01/17 10/12/18 Potassium Chloride [Klor-Con 10] 10 meq PO QMWF 05/01/17 10/12/18 Vit C/E/Zn/Coppr/Lutein/Zeaxan 1 cap PO BID 05/01/17 10/12/18 [Preservision Areds 2 Softgel] hydroCHLOROthiazide 12.5 mg PO MOWEFR 05/01/17 10/12/18 [Hydrochlorothiazide] Losartan [Cozaar] 25 mg PO DAILY 10/12/18 10/12/18 Previous Rx's Medication Instructions Recorded Cyanocobalamin (B-12) [Vitamin B12] 1,000 mcg PO DAILY #30 tablet 05/13/17 Allergies Allergy/AdvReac Type Severity Reaction Status Date / Time Penicillins [PCN] Allergy Rash Verified 10/11/18 22:39 All systems ED: reviewed and negative except as stated. Review of Systems: As Per HPI Constitutional: Reports: chills, weakness. Denies: fever ENT ED: Denies: congestion Cardiovascular: Denies: chest pain Respiratory: Reports: dyspnea. Denies: cough Gastrointestinal: Denies: abdominal pain, nausea, vomiting Genitourinary: Denies: dysuria Musculoskeletal: Denies: back pain Integumentary: Denies: rash, abrasion Neurological: Reports: weakness. Denies: headache, confusion Past Medical History - Past Medical History Attestation: Yes The following information was validated with the patient. Source: patient Medical history: Reports: COPD, dementia, hypertension Surgical history: Reports: appendectomy, cholecystectomy, colostomy, hysterectomy Psychiatric history: Reports: depression - Social History Smoking Status: Never smoker Smokeless Tobacco Status: No Alcohol use: Reports: none Drug use: Reports: none Physical Exam - General Limitations: no limitations General appearance: alert, in distress (Mild respiratory) - Head Head exam: atraumatic, normocephalic, normal inspection - Eye Eye exam: Present: normal appearance, PERRL, EOMI - ENT ENT exam: normal exam, normal oropharynx, mucous membranes moist - Neck Neck exam: Present: normal inspection, full ROM, trachea midline - Chest Chest inspection: Present: normal inspection, symmetric chest wall rise - Respiratory Respiratory exam: Present: respiratory distress (Mild), prolonged expiratory phase, other (Diminished breath sounds bilaterally). Absent: wheezes - Cardiovascular Cardiovascular exam: Present: regular rate, normal rhythm, normal heart sounds - Abdominal Exam Abdominal exam: Present: soft, Non-Tender. Absent: tenderness, distention, guar ding, rebound, rigidity - Extremities Exam Extremities exam: Present: normal inspection, full ROM, normal capillary refill. Absent: tenderness, pedal edema, calf tenderness - Back Exam Back exam: Present: normal inspection, full ROM. Absent: tenderness - Neurological Exam Neurological exam: Present: alert - Expanded Neurological Exam Motor strength - LUE: 5/5 Motor strength - RUE: 5/5 Motor strength - LLE: 5/5 Motor strength - RLE: 5/5 - Psychiatric Psychiatric exam: Present: normal affect, normal mood - Skin Skin exam: Present: warm, dry, intact, normal color. Absent: rash, cyanosis, diaphoresis Course Course Narrative: Patient is currently 95% on 2 L. She does not wear any home oxygen. Diminished breath sounds bilaterally. Reported history of COPD not on any inhalers. Will treat as COPD but evaluate for possible infectious etiology. Troponin BNP labs including a CT to evaluate for pulmonary embolism. - Reevaluation(s) Reevaluation #1: Nifty leukocytosis of 19. Lactate 0.8. Troponin elevated 0.11. BNP mildly elevated 100. CT scan does not reveal pulmonary embolism but pneumonia. Patient has not been hospitalized for past 3 months it will be treated for community acquired pneumonia. Suspect elevated troponin is likely demand ischemia without any EKG changes. Will not anticoagulated at this time as patient denies chest pain. Patient will be admitted for IV antibiotics. On repeat evaluation she has wheezing with crackles bilaterally right greater than the left. Patient will be admitted for sepsis secondary to pneumonia. - Consultations Consultation #1: Spoke with on-call hospitalist anna Avalos to admit for sepsis secondary to CAP. No further orders at this time Vital Signs Temperature 99.1 F 10/11/18 19:40 Pulse Rate 90 10/11/18 19:40 Respiratory Rate 16 10/11/18 19:40 Blood Pressure 125/80 10/11/18 19:40 O2 Sat by Pulse Oximetry 94 10/11/18 19:40 Temperature 98.0 F 10/12/18 01:58 Pulse Rate 88 10/12/18 01:58 Respiratory Rate 18 10/12/18 03:30 Blood Pressure 108/56 10/12/18 01:58 O2 Sat by Pulse Oximetry 91 10/12/18 03:30 Oxygen Delivery Oxygen Delivery Nasal Cannula Shortness of Breath/Dyspnea - MDM Narrative Medical decision making narrative: Patient was discussed with my attending physician who agrees with ED management and final disposition. They independently evaluated the patient. Please refer to their attestation to this encounter for additional information. This note was generated by [employer] voice recognition software and as a result grammatical or spelling errors may occur using this program. - Medical Records Medical records reviewed: Yes I reviewed the patient's medical records. - Lab Data Lab results reviewed: Yes I reviewed the patient's lab results. Result diagrams: 10/11/18 20:42 10/11/18 20:42 Lab Results 10/11/18 10/11/18 10/11/18 Range/Units 20:40 20:42 20:42 WBC 19.6 H (4.3-11.1) K/mcL RBC 4.65 (3.82-4.97) M/mcL Hgb 13.2 (11.5-15.4) g/dL Hct 39.8 (35.3-44.9) % MCV 85.6 (83.0-100.0) fL MCH 28.4 (28.0-33.3) pg MCHC 33.2 (31.6-35.5) g/dL RDW 15.0 H (11.5-14.5) % Plt Count 260 (140-400) K/mcL MPV 10.3 (9.4-12.4) fL Immature Gran % 0.5 (0-4) % Seg Neutrophils % 84.6 % Lymphocytes % 6.9 % Monocytes % 7.5 % Eosinophils % 0.3 % Basophils % 0.2 % Neutrophils # 16.6 H (1.6-8.9) K/mcL Lymphocytes # 1.4 (0.6-4.6) K/mcL Monocytes # 1.5 H (0.0-1.3) K/mcL Eosinophils # 0.1 (0.0-0.6) K/mcL Basophils # 0.0 (0.0-0.2) K/mcL Sodium 135 L (136-145) mEq/L Potassium 4.2 (3.5-5.1) mEq/L Chloride 98 (98-107) mEq/L Carbon Dioxide 29 (23-29) mEq/L BUN 26 H (8-23) mg/dL Creatinine 1.06 (0.60-1.20) mg/dL Est GFR ( Amer) > 60 (> 60) Est GFR (Non-Af Amer) 50 L (> 60) BUN/Creatinine Ratio 25 (6-26) Glucose 175 H (70-105) mg/dL Calculated Osmolality 289 (280-300) Lactic Acid 0.8 (0.5-2.2) mmol/L Calcium 10.1 (8.6-10.3) mg/dL Troponin I 0.11 H* (< 0.04) ng/mL B-Natriuretic Peptide (Less than 100) pg/mL 10/11/18 Range/Units 20:42 WBC (4.3-11.1) K/mcL RBC (3.82-4.97) M/mcL Hgb (11.5-15.4) g/dL Hct (35.3-44.9) % MCV (83.0-100.0) fL MCH (28.0-33.3) pg MCHC (31.6-35.5) g/dL RDW (11.5-14.5) % Plt Count (140-400) K/mcL MPV (9.4-12.4) fL Immature Gran % (0-4) % Seg Neutrophils % % Lymphocytes % % Monocytes % % Eosinophils % % Basophils % % Neutrophils # (1.6-8.9) K/mcL Lymphocytes # (0.6-4.6) K/mcL Monocytes # (0.0-1.3) K/mcL Eosinophils # (0.0-0.6) K/mcL Basophils # (0.0-0.2) K/mcL Sodium (136-145) mEq/L Potassium (3.5-5.1) mEq/L Chloride (98-107) mEq/L Carbon Dioxide (23-29) mEq/L BUN (8-23) mg/dL Creatinine (0.60-1.20) mg/dL Est GFR ( Amer) (> 60) Est GFR (Non-Af Amer) (> 60) BUN/Creatinine Ratio (6-26) Glucose (70-105) mg/dL Calculated Osmolality (280-300) Lactic Acid (0.5-2.2) mmol/L Calcium (8.6-10.3) mg/dL Troponin I (< 0.04) ng/mL B-Natriuretic Peptide 102 H (Less than 100) pg/mL - Radiology Data Radiology results reviewed: Yes I reviewed the patient's radiology results. Chest CTA 10/11/18 20:02 IMPRESSION: No findings to suggest pulmonary embolus Multifocal airspace disease suggestive of pneumonia. D/ / Anshu Garcia / Anshu Garcia Interpreting Provider: Anshu Garcia - EKG Data EKG attestation: Yes I reviewed and interpreted this EKG. EKG results narrative: EKG performed 1956 normal sinus rhythm 88 beats per minute, normal axis, good R wave progression, no ST elevation or depression. Intervals within normal limits. No old EKG available for comparison at this time. No acute ischemic changes. Repeat EKG performed at 7 sinus tachycardia 129 beats per minute, no acute ischemic changes.
[2018-10-11 21:04] LABS: Basophils % 0.2 %; Eosinophils # 0.1 K/mcL (0.0-0.6); Eosinophils % 0.3 %; Hematocrit 39.8 % (35.3-44.9); Hemoglobin 13.2 g/dL (11.5-15.4); Immature Granulocytes % 0.5 % (0-4); Lymphocytes # 1.4 K/mcL (0.6-4.6); Lymphocytes % 6.9 %; Mean Corpuscular HGB Conc 33.2 g/dL (31.6-35.5); Mean Corpuscular Hemoglobin 28.4 pg (28.0-33.3); Mean Corpuscular Volume 85.6 fL (83.0-100.0); Mean Platelet Volume 10.3 fL (9.4-12.4); Monocytes # 1.5 K/mcL (0.0-1.3); Monocytes % 7.5 %; Neutrophils # 16.6 K/mcL (1.6-8.9); Platelet Count 260 K/mcL (140-400); Red Blood Count 4.65 M/mcL (3.82-4.97); Segmented Neutrophils % 84.6 %
[2018-10-11 21:25] LABS: BUN/Creatinine Ratio 25 (6-26); Blood Urea Nitrogen 26 mg/dL (8-23); Calcium 10.1 mg/dL (8.6-10.3); Carbon Dioxide 29 mEq/L (23-29); Chloride 98 mEq/L (98-107); Glucose 175 mg/dL (70-105); Osmolality,Calculated 289 (280-300); Potassium 4.2 mEq/L (3.5-5.1); Sodium 135 mEq/L (136-145); eGFR For Non-African Americans 50 (> 60)
[2018-10-11 21:30] LABS: Troponin I 0.11 ng/mL (< 0.04)
[2018-10-11] MEDS ORDERED: Aspirin 325 MG TABLET PO ONE (21:30)
[2018-10-11] MEDS ORDERED: 0.9 % Sodium Chloride 1,000 ML IVC ONE ×2 (21:31→22:42)
[2018-10-11] MEDS ORDERED: Azithromycin 500 MG in D5% in Water 250 ML IVPB ONE (22:06)
[2018-10-11] MEDS ORDERED: cefTRIAXone 1,000 MG in Water for inj. (sterile) 20 ML 10 ML IVP ONE (22:42)
[2018-10-11] MEDS ORDERED: 0.9 % Sodium Chloride 1,000 ML IVC SCH (22:45)
--- NOTE | 2018-10-11 23:09 | Emergency Department Note ---
Disposition Clinical Impression: Hypoxia, Elevated troponin Sepsis Qualifiers: Sepsis type: sepsis due to unspecified organism Qualified Code(s): A41.9 - Sepsis, unspecified organism Community acquired pneumonia Qualifiers: Laterality: unspecified laterality Qualified Code(s): J18.9 - Pneumonia, unspecified organism Disposition: Admitted As Inpatient Condition: Good Referrals: Cody Arora MD [Primary Care Provider] - Forms: ED Satisfaction Letter General Adult HPI - General Chief complaint: ED Shortness of Breath/Dyspnea Stated complaint: Poss. Pneumonia/Sent From [facility] Time Seen by Provider: 10/11/18 19:38 Source: patient, family ( and daughter) Limitations: no limitations - History of Present Illness Pain Scale: 0 - Related Data Home Medications Medication Instructions Recorded Confirmed Calcium Carbonate/Vitamin D3 1 each PO BID 05/01/17 05/05/17 [Calcium 600-Vit D3 800 Tablet] Cholecalciferol (D-3) [Vitamin D] 1,000 unit PO DAILY 05/01/17 05/05/17 Losartan Potassium [Cozaar] 50 mg PO DAILY 05/01/17 05/05/17 Memantine HCl [Namenda Xr] 28 mg PO DAILY 05/01/17 05/05/17 Potassium Chloride [Klor-Con 10] 10 meq PO AD 05/01/17 05/05/17 Vit C/E/Zn/Coppr/Lutein/Zeaxan 1 cap PO BID 05/01/17 05/05/17 [Preservision Areds 2 Softgel] hydroCHLOROthiazide 12.5 mg PO MOWEFR 05/01/17 05/05/17 [Hydrochlorothiazide] Previous Rx's Medication Instructions Recorded Cyanocobalamin (B-12) [Vitamin B12] 1,000 mcg PO DAILY #30 tablet 05/13/17 Allergies Allergy/AdvReac Type Severity Reaction Status Date / Time Penicillins [PCN] Allergy Rash Verified 10/11/18 22:39 Constitutional: Reports: chills, weakness. Denies: fever ENT ED: Denies: congestion Cardiovascular: Denies: chest pain Respiratory: Reports: dyspnea. Denies: cough Gastrointestinal: Denies: abdominal pain, nausea, vomiting Genitourinary: Denies: dysuria Musculoskeletal: Denies: back pain Integumentary: Denies: rash, abrasion Neurological: Reports: weakness. Denies: headache, confusion Past Medical History - Past Medical History Medical history: Reports: COPD, dementia, hypertension Surgical history: Reports: appendectomy, cholecystectomy, colostomy, hysterectomy Psychiatric history: Reports: depression - Social History Smoking Status: Never smoker Smokeless Tobacco Status: No Alcohol use: Reports: none Drug use: Reports: none Physical Exam - General Limitations: no limitations General appearance: alert, in distress (Mild respiratory) Course Vital Signs Temperature 99.1 F 10/11/18 19:40 Pulse Rate 90 10/11/18 19:40 Respiratory Rate 16 10/11/18 19:40 Blood Pressure 125/80 10/11/18 19:40 O2 Sat by Pulse Oximetry 94 10/11/18 19:40 Temperature 99.7 F H 10/11/18 22:38 Pulse Rate 131 10/11/18 22:38 Respiratory Rate 22 10/11/18 22:38 Blood Pressure 121/61 10/11/18 22:38 O2 Sat by Pulse Oximetry 96 10/11/18 22:38 Oxygen Delivery Oxygen Delivery Nasal Cannula Medical Decision Making - Lab Data Result diagrams: 10/11/18 20:42 10/11/18 20:42 Lab Results 10/11/18 10/11/18 10/11/18 Range/Units 20:40 20:42 20:42 WBC 19.6 H (4.3-11.1) K/mcL RBC 4.65 (3.82-4.97) M/mcL Hgb 13.2 (11.5-15.4) g/dL Hct 39.8 (35.3-44.9) % MCV 85.6 (83.0-100.0) fL MCH 28.4 (28.0-33.3) pg MCHC 33.2 (31.6-35.5) g/dL RDW 15.0 H (11.5-14.5) % Plt Count 260 (140-400) K/mcL MPV 10.3 (9.4-12.4) fL Immature Gran % 0.5 (0-4) % Seg Neutrophils % 84.6 % Lymphocytes % 6.9 % Monocytes % 7.5 % Eosinophils % 0.3 % Basophils % 0.2 % Neutrophils # 16.6 H (1.6-8.9) K/mcL Lymphocytes # 1.4 (0.6-4.6) K/mcL Monocytes # 1.5 H (0.0-1.3) K/mcL Eosinophils # 0.1 (0.0-0.6) K/mcL Basophils # 0.0 (0.0-0.2) K/mcL Sodium 135 L (136-145) mEq/L Potassium 4.2 (3.5-5.1) mEq/L Chloride 98 (98-107) mEq/L Carbon Dioxide 29 (23-29) mEq/L BUN 26 H (8-23) mg/dL Creatinine 1.06 (0.60-1.20) mg/dL Est GFR ( Amer) > 60 (> 60) Est GFR (Non-Af Amer) 50 L (> 60) BUN/Creatinine Ratio 25 (6-26) Glucose 175 H (70-105) mg/dL Calculated Osmolality 289 (280-300) Lactic Acid 0.8 (0.5-2.2) mmol/L Calcium 10.1 (8.6-10.3) mg/dL Troponin I 0.11 H* (< 0.04) ng/mL B-Natriuretic Peptide (Less than 100) pg/mL 10/11/18 Range/Units 20:42 WBC (4.3-11.1) K/mcL RBC (3.82-4.97) M/mcL Hgb (11.5-15.4) g/dL Hct (35.3-44.9) % MCV (83.0-100.0) fL MCH (28.0-33.3) pg MCHC (31.6-35.5) g/dL RDW (11.5-14.5) % Plt Count (140-400) K/mcL MPV (9.4-12.4) fL Immature Gran % (0-4) % Seg Neutrophils % % Lymphocytes % % Monocytes % % Eosinophils % % Basophils % % Neutrophils # (1.6-8.9) K/mcL Lymphocytes # (0.6-4.6) K/mcL Monocytes # (0.0-1.3) K/mcL Eosinophils # (0.0-0.6) K/mcL Basophils # (0.0-0.2) K/mcL Sodium (136-145) mEq/L Potassium (3.5-5.1) mEq/L Chloride (98-107) mEq/L Carbon Dioxide (23-29) mEq/L BUN (8-23) mg/dL Creatinine (0.60-1.20) mg/dL Est GFR ( Amer) (> 60) Est GFR (Non-Af Amer) (> 60) BUN/Creatinine Ratio (6-26) Glucose (70-105) mg/dL Calculated Osmolality (280-300) Lactic Acid (0.5-2.2) mmol/L Calcium (8.6-10.3) mg/dL Troponin I (< 0.04) ng/mL B-Natriuretic Peptide 102 H (Less than 100) pg/mL Attestation Statement - Attestation Attestation: I examined this patient and my medical decision-making was reviewed with the Resident Physician. I agree with the documented findings, disposition and treatment plan as described except to the extent set forth below. 82 year old female presents to the ED with complaints of dyspnea and hypoxia with need for increased oxygen therapy and does not wear oxygen at home. Blanca appears ot have mutli focal pnuemonia wiht elevated WBC and will start on CAP therpy at this time and IVF and admit to medicine as she meets SEPSIS criteria.
[2018-10-12] MEDS ORDERED: Acetaminophen 325 MG TABLET PO PRN (01:54)
[2018-10-12] MEDS ORDERED: Ondansetron 4 MG/2 ML VIAL IVP PRN (01:54)
[2018-10-12] MEDS ORDERED: Naloxone 0.4 MG/ML INJ IVP PRN (01:54)
[2018-10-12] MEDS ORDERED: Vancomycin (wt based) 1,000 MG VIAL IVPB SCH (02:00)
[2018-10-12] MEDS: 0.9 % Sodium Chloride 1,000 ML IVC SCH ×3 (02:49→22:07)
[2018-10-12] MEDS: Ipratropium/Albuterol Neb 3 ML IH SCH ×4 (03:29→21:27)
[2018-10-12] MEDS: *HR* Heparin 5,000 UNIT/ML VIAL SQ SCH ×3 (05:58→20:19)
--- NOTE | 2018-10-12 05:58 | Internal Med History&Physical ---
Date of Encounter: 10/12/18 Time of Encounter: 01:45 Internal Medicine - H&P: HPI Chief complaint: short of breath Admitted From: Emergency Dept Plans for Post Hospital Care: Home History of present illness: Ms. Carver is a 82 year old female who presents to the ER with complaints of shortness of breath. She was seen in urgent care earlier, had a chest x-ray, and there were concerns that she likely had pneumonia. Because of hypoxemia, new findings of pneumonia, and familial concern of decompensation, she was brou ght to ER for evaluation. In the ER, she had workup and findings concerning for sepsis. She was therefore started on IV antibiotics, received IV fluids, and was admitted to hospitalist service. She actually underwent CT of the chest to rule out PE. This was negative for PE, but there was evidence to suggest multifocal pneumonia. Upon my assessment of the patient, patient is sleeping in the ER but easily arousable. History is obtained exclusively from her daughter. Daughter confirms the above history. There were no reported fevers or night sweats. However, she has had significant chills and shivering today. She has had a vague cough, worsening dyspnea, and poor appetite. Symptoms started roughly 2 days ago. She had no reported vomiting, diarrhea, dysuria, or abdominal pain. She has no known ill contacts recently. She lives at home and has caregivers [id number] to help with her care. CODE STATUS was discussed with family and she remains full code. Past Med Surg Social Fam HX - Past Medical History Source: old records reviewed, obtained from family Medical history: COPD, dementia, hypertension Psychiatric history: depression - Past Surgical History Surgical History: appendectomy, cholecystectomy, colostomy, hysterectomy Additional surgical history: back sx 2008. T&A. coloctomy reversal. ankle sx - Social History Smoking Status: Never smoker Smokeless Tobacco Status: No Alcohol use: none Drug use: none Current living situation: Home Activity Level: Mostly sedentary Recent Out of Country Travel Within the Last 8 Weeks: No - Family History Mother History Unknown: Yes Father History Unknown: Yes Internal Medicine - H&P: Meds Calcium Carbonate/Vitamin D3 [Calcium 600-Vit D3 800 Tablet] 1 each PO BID 05/01/17 [History] Cholecalciferol (D-3) [Vitamin D] 1,000 unit PO DAILY 05/01/17 [History] Memantine HCl [Namenda Xr] 28 mg PO DAILY 05/01/17 [History] Potassium Chloride [Klor-Con 10] 10 meq PO QMWF 05/01/17 [History] Vit C/E/Zn/Coppr/Lutein/Zeaxan [Preservision Areds 2 Softgel] 1 cap PO BID 05/01/17 [History] hydroCHLOROthiazide [Hydrochlorothiazide] 12.5 mg PO MOWEFR 05/01/17 [History] Cyanocobalamin (B-12) [Vitamin B12] 1,000 mcg PO DAILY #30 tablet 05/13/17 [Rx] Losartan [Cozaar] 25 mg PO DAILY 10/12/18 [History] 3 Allergy/AdvReac Type Severity Reaction Status Date / Time Penicillins [PCN] Allergy Rash Verified 10/11/18 22:39 Review of systems: as per daughter - Constitutional Constitutional: chills, fatigue, weakness, no fever(s), no night sweats - EENT Eyes: no change in vision Ears: no ear pain Nose, mouth and throat: no nasal congestion, no sore throat - Cardiovascular Cardiovascular ROS IM: dyspnea, dyspnea on exertion, no chest pain, no orthopnea, no paroxysmal nocturnal dyspnea - Respiratory Respiratory: cough, dyspnea, chest congestion - Gastrointestinal Gastrointestinal: early satiety, no abdominal pain, no diarrhea, no hematemesis, no hematochezia, no melena, no vomiting - Genitourinary Genitourinary: no dysuria, no flank pain, no hematuria - Musculoskeletal Musculoskeletal ROS IM: no arthralgias, no back pain - Integumentary Integumentary IM: no rash, no jaundice - Neurological Neurological ROS: no focal weakness, no frequent falls, no headache(s) - Psychiatric Psychiatric: no anxiety, no depression - Endocrine Endocrine IM: no polydipsia, no polyuria - Allergic/Immunologic Allergic/Immunologic: no GI upset with certain foods - Constitutional Vitals: Temp Pulse Resp BP Pulse Ox 98.0 F 88 18 108/56 91 10/12/18 01:58 10/12/18 01:58 10/12/18 03:30 10/12/18 01:58 10/12/18 03:30 General appearance: Present: cooperative, A&O X 2, pleasant, no acute distress Exam: see below - Head Head exam: Present: atraumatic, normal inspection - Eye Eye exam: Present: EOMI, PERRL. Absent: scleral icterus Pupils: Present: normal accommodation - ENT ENT exam: Present: mucous membranes dry, normal exam, normal oropharynx - Neck Neck exam general surgery: Present: full ROM, supple, trachea midline. Absent: lymphadenopathy, tenderness, nuchal rigidity, thyromegaly - Respiratory Respiratory exam: Present: prolonged expiratory phase, rales (predominantly left base), respiratory distress (mild), rhonchi, tachypnea. Absent: chest wall tenderness, wheezes - Cardiovascular Cardiovascular exam: Present: distant heart sounds, RRR, +S1, +S2. Absent: diastolic murmur, systolic murmur - GI/Abdominal GI/Abdominal exam: Present: normal bowel sounds, soft. Absent: guarding, hepatomegaly, mass, rebound, splenomegaly, tenderness - Extremities Exam Extremities exam: Present: normal capillary refill, warm, radial pulses palpable and symmetrical. Absent: calf tenderness, joint swelling, pedal edema, tenderness - Back Exam Back exam: Present: normal inspection. Absent: CVA tenderness (L), CVA tenderness (R) - Neurological Exam Neurological exam: Present: CN II-XII intact, oriented X3, no focal deficits, strengths equal and symetr throughout - Psychiatric Psychiatric exam: Present: normal affect, normal mood - Skin Skin exam: Present: dry, intact, warm Internal Med - H&P Results - Labs CBC & Chem 7: 10/11/18 20:42 10/11/18 20:42 Labs: Short CBC 10/11/18 Range/Units 20:42 WBC 19.6 H (4.3-11.1) K/mcL Hgb 13.2 (11.5-15.4) g/dL Hct 39.8 (35.3-44.9) % Plt Count 260 (140-400) K/mcL Neutrophils # 16.6 H (1.6-8.9) K/mcL BMP 10/11/18 20:42 Sodium 135 L Potassium 4.2 Chloride 98 Carbon Dioxide 29 BUN 26 H Creatinine 1.06 Glucose 175 H Calcium 10.1 Cardiac Enzymes 10/11/18 10/12/18 Range/Units 20:42 02:27 Troponin I 0.11 H* 0.07 H* (< 0.04) ng/mL - EKG Data -: EKG Interpreted by Myself - EKG Data Prior EKG available for review: no EKG comments: 10/12/18 06:05 NSR; no acute ST-T changes - Impressions ITS Impressions Chest CTA 10/11/18 20:02 IMPRESSION: No findings to suggest pulmonary embolus Multifocal airspace disease suggestive of pneumonia. D/ / Anshu Garcia / Anshu Garcia Interpreting Provider: Anshu Garcia - Diagnostic Studies CT scan - chest Status: image reviewed by me (multi-focal infiltrates) - Assessment and Plan (1) Sepsis Current Visit: Yes Status: Acute Assessment and plan: 1. Will trend lactate levels. 2. IVF and IV antibiotics for treatment of pneumonia. 3. BP preserved. 4. Monitor on telemetry. 5. Will add Vancomycin in addition to Rocephin and Zithromax. Qualifiers: Sepsis type: sepsis due to unspecified organism Qualified Code(s): A41.9 - Sepsis, unspecified organism (2) Community acquired pneumonia Current Visit: Yes Status: Acute Assessment and plan: 1. Antibiotics as above. 2. Oxygen and aerosols PRN. 3. Add sputum culture. Qualifiers: Laterality: unspecified laterality Qualified Code(s): J18.9 - Pneumonia, un specified organism (3) Elevated troponin Current Visit: Yes Status: Acute Assessment and plan: 1. No reported chest pain. 2. Will trend troponins and EKG's. 3. Consult cardiology if troponin trends rise. 4. Likely due to pneumonia and sepsis. (4) Dementia Current Visit: Yes Status: Chronic Assessment and plan: 1. Continue home meds as appropriate. 2. Patient not at baseline per daughter. 3. Monitor clinically and per family's observation. Qualifiers: Dementia type: Alzheimer's disease Alzheimer's disease onset: unspecified onset Dementia behavioral disturbance: without behavioral disturbance Qualified Code(s): G30.9 - Alzheimer's disease, unspecified; F02.80 - Dementia in other diseases classified elsewhere without behavioral disturbance; F02.80 - Dementia in other diseases classified elsewhere without behavioral disturbance; F02.80 - Dementia in other diseases classified elsewhere without behavioral disturbance (5) DVT prophylaxis Current Visit: Yes Status: Acute Assessment and plan: 1. Heparin SQ.
[2018-10-12 06:50] LABS: Basophils % 0.1 %; Hematocrit 35.1 % (35.3-44.9); Immature Granulocytes % 0.4 % (0-4); Lymphocytes # 0.7 K/mcL (0.6-4.6); Lymphocytes % 4.1 %; Mean Corpuscular HGB Conc 32.8 g/dL (31.6-35.5); Mean Corpuscular Hemoglobin 27.9 pg (28.0-33.3); Mean Corpuscular Volume 85.2 fL (83.0-100.0); Mean Platelet Volume 10.3 fL (9.4-12.4); Monocytes # 0.3 K/mcL (0.0-1.3); Monocytes % 1.8 %; Neutrophils # 15.1 K/mcL (1.6-8.9); Platelet Count 231 K/mcL (140-400); Red Blood Count 4.12 M/mcL (3.82-4.97); Red Cell Distribution Width 15.1 % (11.5-14.5); Segmented Neutrophils % 93.6 %
[2018-10-12 06:52] LABS: Hemoglobin 11.5 g/dL (11.5-15.4)
[2018-10-12 06:56] LABS: INR 1.3; Prothrombin Time 14.2 Seconds (9.4-12.1)
[2018-10-12 06:58] LABS: Activated Partial Thrombo Time 29.7 Seconds (26.0-36.0)
[2018-10-12 07:10] LABS: Alanine Aminotransferase 26 Units/L (7-52); Albumin 3.1 g/dL (3.5-5.7); Alkaline Phosphatase 82 Units/L (34-104); Aspartate Amino Transferase 16 Units/L (13-39); BUN/Creatinine Ratio 23 (6-26); Bilirubin,Total 0.3 mg/dL (0.3-1.0); Blood Urea Nitrogen 22 mg/dL (8-23); Calcium 8.7 mg/dL (8.6-10.3); Carbon Dioxide 26 mEq/L (23-29); Chloride 101 mEq/L (98-107); Globulin 3.1 g/dL (2.4-3.5); Glucose 356 mg/dL (70-105); Magnesium 1.9 mg/dL (1.6-2.6); Osmolality,Calculated 298 (280-300); Potassium 4.1 mEq/L (3.5-5.1); Sodium 135 mEq/L (136-145); Total Protein 6.2 g/dL (6.4-8.9); eGFR For Non-African Americans 56 (> 60)
[2018-10-12] MEDS ORDERED: Ipratropium Neb 0.5 MG NEBULIZER IH PRN (08:47)
[2018-10-12] MEDS ORDERED: *HR* Dextrose 50 % in Water (Syg) 50 ML SYRINGE IVP PRN (08:50)
[2018-10-12] MEDS ORDERED: D5% in Water 1,000 ML IVC PRN (08:50)
[2018-10-12] MEDS ORDERED: Dextrose Gel 15 GM/37.5 ML TUBE PO PRN ×2 (08:50)
--- NOTE | 2018-10-12 12:07 | Event Note ---
Date of Encounter: 10/12/18 Time of Encounter: 09:50 Ms Carver is a 82 yo F pmhx COPD, Dementia, HTN, prediabetes per family, who presented with sob and found on CXR to have pneumonia. CTA chest no PE and + multifocal pna. She qualifies as having sepsis. She also is having suspected Type II [place] at this time. Pt asleep. Son at bedside. Pt does awake to name and will answer some questions but then closes her eyes. Son notes she can be stubborn and sometimes choses not to answer questions. She has breakfast plate in front of her with most food eaten though he was not here when this would have ocurred. HPI limited by pt cooperation. She denies cp, pressure and sob. gen- asleep, awakes to touch then closes eyes and turns head, appears stated age, nad eyes- pupils equal round , no conjunctival pallor cv- reg rate and rhythm, normal s1,s2, no murmurs appreciated, no le edema lungs- ctabl, no wheezing, rhonchi or crackles on ant/lat hansen, normal resp effort on o2 nc abd- soft, no apparent tenderness, non distended, + bs neuro- asleep, awakes to touch, minimal interaction, cannot appreciate facial droop or slurred speech, CN grossly intact Sepsis 2/2 Multifocal Pna Multifocal Pna, organism unknown COPDE 2/2 above Acute resp Failure 2/2 above -s/p sepsis boluses, now MIVFs -started on vanc + rocephin + azithro by aditter--check mrsa swab- if neg can dc vanc -bl cxs pending -attempt to ID organism -O2 nc, nebs standing and prn, s/p IV steroid in ED, no wheezing on exam, hold further steroids at this time Type II [place] Trop Elevation to 0.11 In setting of sepsis EKG NSR no acute ischemic changes -Cards consutled and appreciate recs -cont to trend trops, tele and will check echo, no heparin gtt required at this time Dementia- cont ned emeds HTN, stable- hold home meds in setting of sepsis and normotensive Hyperglycemia s/p IV steroids in ED, son reports possible pre DM in past- SSI and accu checks, prn hypoglycemics,check a1c in am vte ppx sqh
[2018-10-12] MEDS: Insulin LISPRO 300 UNITS/3 ML VIAL SQ SCH ×3 (12:15→21:39)
--- NOTE | 2018-10-12 13:51 | Cardiology Consult Note ---
Date of Encounter: 10/12/18 Time of Encounter: 13:49 Assessment and Plan (1) Elevated troponin Current Visit: Yes Status: Acute adynamic low level tropnins, likely demand ischemia, obtaine ECHO to evaluate SHD. No ACS meds at this time until recovered from infection. No further cardiac testing planned unless abnormal ECHO. Will sign off and follow up on echo if abnormal Discussion w patient/family: The assessment and plan as outlined above was discussed with the patient and/or family members who expressed understanding and agreement. All questions were answered. Thank you for involving us in the care of your patient. Please call with any questions. History of Present Illness Consult date: 10/12/18 Consult reason: Elevated troponins Chief complaint: SOB History of present illness: Ms. Carver is a 82 year old female with no significant cardiac hx or CRF's presents with fever/pneumonia/elevated WBC and SOB found to have mild troponin adynamic elevation. EKG not available to review. Patient poor historian with baseline dementia. History obtained from daughter and chart review. NO CP, orthopnea or PND. Past Med Surg Social Fam HX - Past Medical History Medical history: COPD, dementia, hypertension Psychiatric history: depression - Past Surgical History Surgical History: appendectomy, cholecystectomy, colostomy, hysterectomy Additional surgical history: back sx 2007. T&A. coloctomy reversal. ankle sx - Social History Smoking Status: Never smoker Smokeless Tobacco Status: No Alcohol use: none Drug use: none - Family History Mother History Unknown: Yes Father History Unknown: Yes Medications and Allergies Calcium Carbonate/Vitamin D3 [Calcium 600-Vit D3 800 Tablet] 1 each PO BID 05/01 [History] Cholecalciferol (D-3) [Vitamin D] 1,000 unit PO DAILY 05/01/17 [History] Memantine HCl [Namenda Xr] 28 mg PO DAILY 05/01/17 [History] Potassium Chloride [Klor-Con 10] 10 meq PO QMWF 05/01/17 [History] Vit C/E/Zn/Coppr/Lutein/Zeaxan [Preservision Areds 2 Softgel] 1 cap PO BID 05/01/17 [History] hydroCHLOROthiazide [Hydrochlorothiazide] 12.5 mg PO MOWEFR 05/01/17 [History] Cyanocobalamin (B-12) [Vitamin B12] 1,000 mcg PO DAILY #30 tablet 05/13/17 [Rx] Losartan [Cozaar] 25 mg PO DAILY 10/12/18 [History] Allergy/AdvReac Type Severity Reaction Status Date / Time Penicillins [PCN] Allergy Rash Verified 10/11/18 22:39 All Systems Review: The remainder of the systems were reviewed and are negative Physical Examination Vital Signs, Last 4 Hours Temp Pulse Resp BP Pulse Ox 10/12/18 11:58 96.5 F L 84 18 111/56 94 10/12/18 10:22 16 94 General: Conversant, No Apparent Distress HEENT: Atraumatic, Normocephaly, Mucus Membranes Moist Neck: No JVD, Normal carotid pulses Cardiac: Reg Rate and Rhythm, Normal S1 and S2, No Murmur Lungs: Normal Breath Sounds, No Wheeze, Rales, Rhonchi Neuro: Alert and responsive, No focal deficits noted Abdomen: Soft, Non-Tender Skin: No rashes noted on visualized skin Musculoskeletal: No Chest Wall Tenderness Extremities: No Clubbing, No Cyanosis, No Edema, Normal Pulses Results 10/12/18 06:33 10/12/18 06:33 Lab Results 10/11/18 10/11/18 10/11/18 20:42 20:42 20:42 WBC 19.6 H Hgb 13.2 Hct 39.8 Plt Count 260 INR APTT Sodium 135 L Potassium 4.2 Chloride 98 Carbon Dioxide 29 BUN 26 H Creatinine 1.06 Glucose 175 H Calcium 10.1 Magnesium Total Bilirubin AST ALT Alkaline Phosphatase Troponin I 0.11 H* B-Natriuretic Peptide 102 H 10/12/18 10/12/18 10/12/18 02:27 06:33 06:33 WBC 16.1 H Hgb 11.5 D Hct 35.1 L Plt Count 231 INR 1.3 APTT 29.7 Sodium Potassium Chloride Carbon Dioxide BUN Creatinine Glucose Calcium Magnesium Total Bilirubin AST ALT Alkaline Phosphatase Troponin I 0.07 H* B-Natriuretic Peptide 10/12/18 10/12/18 06:33 09:19 WBC Hgb Hct Plt Count INR APTT Sodium 135 L Potassium 4.1 Chloride 101 Carbon Dioxide 26 BUN 22 Creatinine 0.95 Glucose 356 H Calcium 8.7 Magnesium 1.9 Total Bilirubin 0.3 AST 16 ALT 26 Alkaline Phosphatase 82 Troponin I 0.11 H* B-Natriuretic Peptide Consult Discharge Plan - Plan Referrals: Beam,Cody W, MD [Primary Care Provider] -
--- NOTE | 2018-10-12 16:58 | Electrocardiograph Report ---
[address] [address] Test Date: 2018-10-11 Pat Name: Tona Carver Department: EXAM3 Room: 2S4 Gender: F [employer]: : 1935 Requested By: Noe Sargent Order Number: [id number] Reading MD: Phyllis Nguyen Measurements Intervals [place] Rate: 129 P: 32 VT: 134 QRS: 83 QRSD: 94 T: -85 QT: 282 QTc: 413 Interpretive Statements Sinus tachycardia Low voltage precordial leads Electronically Signed On 10-12-2018 16:57:19 EDT by Phyllis Nguyen
[2018-10-12] MEDS: cefTRIAXone 2,000 MG in Water for inj. (sterile) 20 ML 20 ML IVP SCH (20:18)
[2018-10-12] MEDS: Azithromycin 500 MG in D5% in Water 250 ML IVPB SCH (20:19)
[2018-10-13 02:51] LABS: Basophils % 0.2 %; Eosinophils % 0.1 %; Hematocrit 35.2 % (35.3-44.9); Hemoglobin 11.1 g/dL (11.5-15.4); Immature Granulocytes % 0.8 % (0-4); Lymphocytes # 1.6 K/mcL (0.6-4.6); Lymphocytes % 8.3 %; Mean Corpuscular HGB Conc 31.5 g/dL (31.6-35.5); Mean Corpuscular Hemoglobin 27.6 pg (28.0-33.3); Mean Corpuscular Volume 87.6 fL (83.0-100.0); Mean Platelet Volume 10.7 fL (9.4-12.4); Monocytes # 1.2 K/mcL (0.0-1.3); Neutrophils # 16.6 K/mcL (1.6-8.9); Platelet Count 262 K/mcL (140-400); Red Blood Count 4.02 M/mcL (3.82-4.97); Red Cell Distribution Width 15.2 % (11.5-14.5); Segmented Neutrophils % 84.6 %
[2018-10-13 03:12] LABS: BUN/Creatinine Ratio 27 (6-26); Blood Urea Nitrogen 25 mg/dL (8-23); Calcium 8.4 mg/dL (8.6-10.3); Carbon Dioxide 26 mEq/L (23-29); Chloride 106 mEq/L (98-107); Glucose 198 mg/dL (70-105); Osmolality,Calculated 300 (280-300); Potassium 3.7 mEq/L (3.5-5.1); Sodium 140 mEq/L (136-145); eGFR For Non-African Americans 58 (> 60)
[2018-10-13] MEDS: Ipratropium/Albuterol Neb 3 ML IH SCH ×4 (04:39→21:00)
[2018-10-13] MEDS: *HR* Heparin 5,000 UNIT/ML VIAL SQ SCH ×3 (04:45→21:42)
[2018-10-13 07:16] LABS: Estimated Average Glucose 126 mg/dl
--- NOTE | 2018-10-13 08:07 | Internal Med Progress Note ---
Hospitalist Progress Note - Encounter Date of Encounter: 10/13/18 Time of Encounter: 08:00 - Subjective Interval History: No acute events overnight - Exam Vitals: Temp Pulse Resp BP Pulse Ox 98 F 80 18 111/58 94 10/13/18 07:20 10/13/18 07:20 10/13/18 07:20 10/13/18 07:20 10/13/18 07:20 Exam: General:NAD HEENT:EOM intact, pupils equal, round, Cardiovascular:regular rate and rhythm, normal S1 & S2, radial pulses 2+ and regular, no lower extremity edema Lungs:diminished throughout, no wheezes,rhonchi or crackles. Normal respiratory effort bipap Abdomen:Soft, non-tender, non-distended, , + bowel sounds Ext: No peripheral edema Neurological: AAOx3, CN grossly intact, no focal deficits - Assessment and Plan (1) Acute and chronic respiratory failure with hypoxia Current Visit: Yes Status: Acute Assessment and Plan: Likely secondary to multifocal pneumonia. continue antibiotics and wean off oxygen as tolerated Patient requiring more oxygen compared to her baseline. Currently on 3L. Will perfor walk test prior to discharge (2) Sepsis Current Visit: Yes Status: Acute Assessment and Plan: Pt has multifocal pneumonia with elevated WBC count Cotninue vanc, ceftriaxone and azithromycin Follow blood cultures (3) Multifocal pneumonia Current Visit: Yes Status: Acute Assessment and Plan: Continue broad spectrum antibiotics (4) Dementia Current Visit: Yes Status: Chronic Assessment and Plan: 1. Continue home meds as appropriate. 2. Patient not at baseline per daughter. 3. Monitor clinically and per family's observation. (5) Elevated troponin Current Visit: Yes Status: Acute Assessment and Plan: 1. No reported chest pain. 2. Will trend troponins and EKG's. 3. Consult cardiology if troponin trends rise. 4. Likely due to pneumonia and sepsis. (6) DVT prophylaxis Current Visit: Yes Status: Acute Assessment and Plan: 1. Heparin SQ. - Time Spent with Patient Total time spent is greater than 50% in coordination of care (as documented) at patient's floor/unit and/or counseling patient: Internal Medicine: Result - Labs CBC & Chem 7: 10/13/18 01:56 10/13/18 01:56 Labs: Short CBC 10/13/18 Range/Units 01:56 WBC 19.6 H (4.3-11.1) K/mcL Hgb 11.1 L (11.5-15.4) g/dL Hct 35.2 L (35.3-44.9) % Plt Count 262 (140-400) K/mcL Neutrophils # 16.6 H (1.6-8.9) K/mcL BMP 10/13/18 01:56 Sodium 140 Potassium 3.7 Chloride 106 Carbon Dioxide 26 BUN 25 H Creatinine 0.92 Glucose 198 H Calcium 8.4 L Cardiac Enzymes 10/12/18 10/12/18 Range/Units : 16:00 Troponin I 0.11 H* < 0.03 (< 0.04) ng/mL - ABG Interpretation ABG results: PT/INR, D-dimer PT 14.2 Seconds (9.4-12.1) H 10/12/18 06:33 Consult Discharge Plan - Plan Referrals: Cody Arora MD [Primary Care Provider] - (2) Sepsis Qualifiers: Sepsis type: sepsis due to unspecified organism Qualified Code(s): A41.9 - Sepsis, unspecified organism (4) Dementia Qualifiers: Dementia type: Alzheimer's disease Alzheimer's disease onset: unspecified onset Dementia behavioral disturbance: without behavioral disturbance Qualified Code(s): G30.9 - Alzheimer's disease, unspecified; F02.80 - Dementia in other diseases classified elsewhere without behavioral disturbance
[2018-10-13] MEDS: FLUoxetine 20 MG CAPSULE PO SCH (09:25)
[2018-10-13] MEDS: Tolterodine LA (24 HR) 2 MG CAP.ER.24H PO SCH (09:25)
[2018-10-13] MEDS: Insulin LISPRO 300 UNITS/3 ML VIAL SQ SCH ×4 (09:26→21:42)
[2018-10-13] MEDS: 0.9 % Sodium Chloride 1,000 ML IVC SCH (13:44)
--- NOTE | 2018-10-13 15:36 | Event Note ---
Date of Encounter: 10/13/18 Time of Encounter: 15:35 - Cardiology Event Note TTE resulted--LVEF 70%. Normal LV chamber size, wall thickness and function. Mild left ventricular diastolic dysfunction. Normal right ventricular structure and function. No evidence of pulmonary hypertension. No significant valvular dysfunction. No further cardiac testing warranted. Cardiology signing off. Reconsult PRN.
[2018-10-13] MEDS: Azithromycin 500 MG in D5% in Water 250 ML IVPB SCH (21:40)
[2018-10-13] MEDS: cefTRIAXone 2,000 MG in Water for inj. (sterile) 20 ML 20 ML IVP SCH (21:41)
[2018-10-14] MEDS: Ipratropium/Albuterol Neb 3 ML IH SCH ×4 (03:23→21:50)
[2018-10-14 04:21] LABS: Basophils # 0.1 K/mcL (0.0-0.2); Basophils % 0.3 %; Eosinophils % 0.2 %; Hematocrit 34.9 % (35.3-44.9); Hemoglobin 11.4 g/dL (11.5-15.4); Immature Granulocytes % 1.4 % (0-4); Lymphocytes % 12.3 %; Mean Corpuscular HGB Conc 32.7 g/dL (31.6-35.5); Mean Corpuscular Hemoglobin 27.6 pg (28.0-33.3); Mean Corpuscular Volume 84.5 fL (83.0-100.0); Mean Platelet Volume 9.9 fL (9.4-12.4); Monocytes # 1.2 K/mcL (0.0-1.3); Monocytes % 7.3 %; Neutrophils # 12.7 K/mcL (1.6-8.9); Platelet Count 294 K/mcL (140-400); Red Blood Count 4.13 M/mcL (3.82-4.97); Red Cell Distribution Width 15.3 % (11.5-14.5); Segmented Neutrophils % 78.5 %
[2018-10-14 04:38] LABS: BUN/Creatinine Ratio 19 (6-26); Blood Urea Nitrogen 15 mg/dL (8-23); Calcium 8.1 mg/dL (8.6-10.3); Carbon Dioxide 23 mEq/L (23-29); Chloride 110 mEq/L (98-107); Glucose 153 mg/dL (70-105); Magnesium 1.8 mg/dL (1.6-2.6); Osmolality,Calculated 298 (280-300); Phosphorous 1.6 mg/dL (2.7-4.5); Potassium 3.7 mEq/L (3.5-5.1); Sodium 142 mEq/L (136-145); eGFR For Non-African Americans > 60 (> 60)
[2018-10-14] MEDS: *HR* Heparin 5,000 UNIT/ML VIAL SQ SCH ×3 (06:16→21:02)
[2018-10-14] MEDS ORDERED: Aminoglycoside Consult 1 EACH MC ONE (07:26)
[2018-10-14] MEDS: Insulin LISPRO 300 UNITS/3 ML VIAL SQ SCH ×4 (07:44→21:03)
[2018-10-14] MEDS: FLUoxetine 20 MG CAPSULE PO SCH (09:03)
[2018-10-14] MEDS: Tolterodine LA (24 HR) 2 MG CAP.ER.24H PO SCH (09:04)
--- NOTE | 2018-10-14 12:01 | Internal Med Progress Note ---
Hospitalist Progress Note - Encounter Date of Encounter: 10/14/18 Time of Encounter: 12:00 - Subjective Interval History: No acute events overnight - Exam Vitals: Temp Pulse Resp BP Pulse Ox 99.1 F 103 25 152/80 93 10/14/18 10:44 10/14/18 10:44 10/14/18 11:56 10/14/18 10:44 10/14/18 11:56 Exam: General:NAD HEENT:EOM intact, pupils equal, round, Cardiovascular:regular rate and rhythm, normal S1 & S2, radial pulses 2+ and regular, no lower extremity edema Lungs:diminished throughout, no wheezes,rhonchi or crackles. Normal respiratory effort bipap Abdomen:Soft, non-tender, non-distended, , + bowel sounds Ext: No peripheral edema Neurological: AAOx3, CN grossly intact, no focal deficits - Assessment and Plan (1) Acute and chronic respiratory failure with hypoxia Current Visit: Yes Status: Acute Assessment and Plan: Likely secondary to multifocal pneumonia. continue antibiotics and wean off oxygen as tolerated Patient requiring more oxygen compared to her baseline. Currently on 3L. Will perform walk test prior to discharge Continue plan of care. Improved this am (2) Sepsis Current Visit: Yes Status: Acute Assessment and Plan: Pt has multifocal pneumonia with elevated WBC count Cotninue vanc, ceftriaxone and azithromycin Follow blood cultures (3) Multifocal pneumonia Current Visit: Yes Status: Acute Assessment and Plan: Continue broad spectrum antibiotics (4) Dementia Current Visit: Yes Status: Chronic Assessment and Plan: 1. Continue home meds as appropriate. 2. Patient not at baseline per daughter. 3. Monitor clinically and per family's observation. (5) Elevated troponin Current Visit: Yes Status: Acute Assessment and Plan: 1. No reported chest pain. 2. Will trend troponins and EKG's. 3. Consult cardiology if troponin trends rise. 4. Likely due to pneumonia and sepsis. (6) DVT prophylaxis Current Visit: Yes Status: Acute Assessment and Plan: 1. Heparin SQ. - Time Spent with Patient Total time spent is greater than 50% in coordination of care (as documented) at patient's floor/unit and/or counseling patient: Internal Medicine: Result - Labs CBC & Chem 7: 10/14/18 03:51 10/14/18 03:51 Labs: Short CBC 10/14/18 Range/Units 03:51 WBC 16.1 H (4.3-11.1) K/mcL Hgb 11.4 L (11.5-15.4) g/dL Hct 34.9 L (35.3-44.9) % Plt Count 294 (140-400) K/mcL Neutrophils # 12.7 H (1.6-8.9) K/mcL BMP 10/14/18 03:51 Sodium 142 Potassium 3.7 Chloride 110 H Carbon Dioxide 23 BUN 15 Creatinine 0.79 Glucose 153 H Calcium 8.1 L - ABG Interpretation ABG results: PT/INR, D-dimer PT 14.2 Seconds (9.4-12.1) H 10/12/18 06:33 - Impressions Impressions Echocardiogram 10/12/18 11:29 Impressions: LVEF 70%. Normal LV chamber size, wall thickness and function. Mild left ventricular diastolic dysfunction. Normal right ventricular structure and function. No evidence of pulmonary hypertension. No significant valvular dysfunction. Left Ventricular Wall Motion: Rest Echo Findings All wall segments showed normal motion. Findings: Study Quality * Technically adequate exam. ECG Findings * Normal sinus rhythm. Left Ventricle * LVEF 70%. * Normal LV chamber size, wall thickness and function. * Mild left ventricular diastolic dysfunction. Right Ventricle * Normal right ventricular structure and function. Left Atrium * Normal left atrial size. Right Atrium * Normal right atrial size. Aortic Valve * Aortic valve not well visualized. * No aortic regurgitation. * No aortic stenosis. Mitral Valve * Mildly thickened mitral valve leaflets. * No mitral stenosis. * No mitral regurgitation. Tricuspid Valve * Normal tricuspid valve structure and function. * Trace tricuspid regurgitation. * No evidence of pulmonary hypertension. Pulmonic Valve * Pulmonic valve is not well visualized. Aorta * Normally sized aortic root. IVC * Normal IVC dimensions and inspiratory collapse. Pulmonary Artery * Pulmonary artery not well visualized. Pericardium * There is a trivial pericardial effusion present. Consult Discharge Plan - Plan Referrals: Cody Arora MD [Primary Care Provider] - (2) Sepsis Qualifiers: Sepsis type: sepsis due to unspecified organism Qualified Code(s): A41.9 - Sepsis, unspecified organism (4) Dementia Qualifiers: Dementia type: Alzheimer's disease Alzheimer's disease onset: unspecified onset Dementia behavioral disturbance: without behavioral disturbance Qualified Code(s): G30.9 - Alzheimer's disease, unspecified; F02.80 - Dementia in other diseases classified elsewhere without behavioral disturbance
[2018-10-14] MEDS: 0.9 % Sodium Chloride 1,000 ML IVC SCH (12:32)
[2018-10-14] MEDS: Budesonide/Formoterol 160/4.5 1 PUFF INH IH SCH ×2 (13:28→21:50)
[2018-10-14] MEDS: cefTRIAXone 2,000 MG in Water for inj. (sterile) 20 ML 20 ML IVP SCH (21:01)
[2018-10-14] MEDS: Azithromycin 500 MG in D5% in Water 250 ML IVPB SCH (21:03)
[2018-10-15] MEDS: Ipratropium/Albuterol Neb 3 ML IH SCH ×2 (03:14→11:30)
[2018-10-15] MEDS: *HR* Heparin 5,000 UNIT/ML VIAL SQ SCH ×2 (05:41→14:17)
[2018-10-15] MEDS: Insulin LISPRO 300 UNITS/3 ML VIAL SQ SCH ×3 (07:37→16:35)
[2018-10-15] MEDS: Tolterodine LA (24 HR) 2 MG CAP.ER.24H PO SCH (09:07)
[2018-10-15] MEDS: FLUoxetine 20 MG CAPSULE PO SCH (09:07)
--- NOTE | 2018-10-15 09:53 | Discharge Summary ---
Date of Encounter: 10/15/18 Time of Encounter: 09:50 - Discharge Diagnosis (1) Sepsis Priority: Primary Status: Acute Assessment and Plan: 82 year old female who presents to the ER with complaints of shortness of breath. She was seen in urgent care earlier, had a chest x-ray, and there were concerns that she likely had pneumonia. Because of hypoxemia, new findings of pneumonia, and familial concern of decompensation, she was brought to ER for evaluation. In the ER, she had workup and findings concerning for sepsis. She was therefore started on IV antibiotics, received IV fluids, and was admitted to hospitalist service. She actually underwent CT of the chest to rule out PE. This was negative for PE, but there was evidence to suggest multifocal pneumonia. She was assessed with acute hypoxic respiratory failure and sepsis secondary to multifocal pneumonia with elevated WBC count. She was started on broad spectrum antibiotics with vanc, ceftriaxone and azithromycin and improveed. Her WBC trended down and she was weaned down to 2L of oxygen from 3-4L on admission. She had mildly elevated troponins on admission, but had an echo done which was WNL. Cardiology recommended no further acute intervention. 35 minutes was spent discharging this patient Qualifiers: Sepsis type: sepsis due to unspecified organism Qualified Code(s): A41.9 - Sepsis, unspecified organism (2) Acute and chronic respiratory failure with hypoxia Priority: Primary Status: Acute Assessment and Plan: Likely secondary to multifocal pneumonia. continue antibiotics and wean off oxygen as tolerated Patient requiring more oxygen compared to her baseline. Currently on 3L. Will perform walk test prior to discharge Continue plan of care. Improved this am (3) Multifocal pneumonia Priority: Primary Status: Acute (4) Dementia Priority: Primary Status: Chronic Qualifiers: Dementia type: Alzheimer's disease Alzheimer's disease onset: unspecified onset Dementia behavioral disturbance: without behavioral disturbance Qualified Code(s): G30.9 - Alzheimer's disease, unspecified; F02.80 - Dementia in other diseases classified elsewhere without behavioral disturbance (5) Elevated troponin Priority: Primary Status: Acute (6) DVT prophylaxis Priority: Primary Status: Acute Hospital course: Ms. Carver is a 82 year old female - Time Spent with Patient Total time spent providing and/or coordinating discharge services: - Discharge Medications Prescriptions: New Azithromycin [Azithromycin 6-Tab Pack] 250 mg PO PER PKG DI #6 tab Cefdinir [Omnicef] 300 mg PO BID 4 Days #8 capsule Continue Cholecalciferol (D-3) [Vitamin D] 10,000 unit PO DAILY Vit C/E/Zn/Coppr/Lutein/Zeaxan [Preservision Areds 2 Softgel] 1 cap PO DAILY Potassium Chloride [Klor-Con 10] 10 meq PO MOWEFR Memantine HCl [Namenda Xr] 28 mg PO DAILY hydroCHLOROthiazide [Hydrochlorothiazide] 12.5 mg PO MOWEFR Calcium Carbonate/Vitamin D3 [Calcium 600-Vit D3 800 Tablet] 1 tab PO BID Tolterodine Tartrate [Tolterodine Tartrate ER] 2 mg PO DAILY FLUoxetine HCl [Prozac] 20 mg PO MOWEFR B-Complex with Vitamin C [Vitamin B-Complex with Vit C] 1 tab PO DAILY Losartan Potassium 50 mg PO DAILY Home Medications: Calcium Carbonate/Vitamin D3 [Calcium 600-Vit D3 800 Tablet] 1 tab PO BID 05/01/17 [History] Cholecalciferol (D-3) [Vitamin D] 10,000 unit PO DAILY 05/01/17 [History] Memantine HCl [Namenda Xr] 28 mg PO DAILY 05/01/17 [History] Potassium Chloride [Klor-Con 10] 10 meq PO MOWEFR 05/01/17 [History] Vit C/E/Zn/Coppr/Lutein/Zeaxan [Preservision Areds 2 Softgel] 1 cap PO DAILY 05/01/17 [History] hydroCHLOROthiazide [Hydrochlorothiazide] 12.5 mg PO MOWEFR 05/01/17 [History] FLUoxetine HCl [Prozac] 20 mg PO MOWEFR 10/12/18 [History] Tolterodine Tartrate [Tolterodine Tartrate ER] 2 mg PO DAILY 10/12/18 [History] B-Complex with Vitamin C [Vitamin B-Complex with Vit C] 1 tab PO DAILY 10/13/18 [History] Losartan Potassium 50 mg PO DAILY 10/13/18 [History] Azithromycin [Azithromycin 6-Tab Pack] 250 mg PO PER PKG DI #6 tab 10/15/18 [Rx] Cefdinir [Omnicef] 300 mg PO BID 4 Days #8 capsule 10/15/18 [Rx] Allergies/Adverse Reactions: Allergy/AdvReac Type Severity Reaction Status Date / Time Penicillins [PCN] Allergy Rash Verified 10/11/18 22:39 Date of admission: 10/12/18 02:08 Primary care physician: Cody Arora MD Consults: 10/12/18 11:29 Consult to Cardiology [CONS] Routine Comment: Consulting Provider: Cardiology Shae Reason for Consult: trop elevation,sepsis setting Call Completed: Yes 10/13/18 13:08 Consult to Physical Therapy [CONS] Routine Comment: Evaluate, develop and implement POC Reason for Consult: evaluate Does patient have active BEDREST order?: No Is patient medically & hemodynamically stable?: Yes 10/13/18 13:11 Consult to Occupational Therapy [CONS] Routine Comment: Evaluate, develop and implement POC Reason for Consult: evaluate Does patient have active BEDREST order?: No Is patient medically & hemodynamically stable?: Yes - Constitutional Vitals: Temp Pulse Resp BP Pulse Ox 98.5 F 81 19 140/86 93 10/15/18 07:53 10/15/18 07:53 10/15/18 07:53 10/15/18 07:53 10/15/18 07:53 General appearance: Present: cooperative, A&O X 2, pleasant, no acute distress Exam: General:NAD HEENT:EOM intact, pupils equal, round, Cardiovascular:regular rate and rhythm, normal S1 & S2, radial pulses 2+ and regular, no lower extremity edema Lungs:diminished throughout, no wheezes,rhonchi or crackles. Normal respiratory effort bipap Abdomen:Soft, non-tender, non-distended, , + bowel sounds Ext: No peripheral edema Neurological: AAOx3, CN grossly intact, no focal deficits - Patient Status Disposition: Home, Self-Care Condition: Good - Discharge Instructions Instructions: Acute Respiratory Distress Syndrome (DC), Chronic Obstructive Pulmonary Disease (DC), Pneumonia (DC) Follow Up With: Steven Dempsey MD [Partnered Physician] - 10/21/18 9:30 am Cody Arora MD [Primary Care Provider] - 10/21/18 1:30 pm Additional Instructions: Home oxygen has been set up through [facility]. Call them when you get home to have them deliver equipment. Their number is #[phone]. Home Health has been set up through [facility]. They will contact you to set up a date and time for admission. If you need to contact them please call #[phone] or #[phone].
[2018-10-15] MEDS: Budesonide/Formoterol 160/4.5 1 PUFF INH IH SCH (11:30)
--- NOTE | 2018-10-15 11:47 | Physician Discharge Referral ---
Home Health/Hosp Referral Info Transfer to: Home Health - Diagnosis (1) Acute and chronic respiratory failure with hypoxia Priority: Primary Status: Acute (2) Sepsis Priority: Primary Status: Acute (3) Multifocal pneumonia Priority: Primary Status: Acute (4) Dementia Priority: Primary Status: Chronic (5) Elevated troponin Priority: Primary Status: Acute (6) DVT prophylaxis Priority: Primary Status: Acute - Respiratory Orders Smoking Cessation: Smoking cessation has been advised. For more information, call the [place] Tobacco Quit Line at 1-380-JBMI-NOW. - Diet/Nutrition Diet/Nutrition Orders: Cardiac - Activity Activity Orders: Ambulate - Services Needed Following services are medically necessary services: Nursing, Home Health Aide, Physical Therapy - Transfer Medications Prescriptions: Azithromycin [Azithromycin 6-Tab Pack] 250 mg PO PER PKG DI #6 tab Cefdinir [Omnicef] 300 mg PO BID 4 Days #8 capsule Home Medications: Calcium Carbonate/Vitamin D3 [Calcium 600-Vit D3 800 Tablet] 1 tab PO BID 05/01/17 [History] Cholecalciferol (D-3) [Vitamin D] 10,000 unit PO DAILY 05/01/17 [History] Memantine HCl [Namenda Xr] 28 mg PO DAILY 05/01/17 [History] Potassium Chloride [Klor-Con 10] 10 meq PO MOWEFR 05/01/17 [History] Vit C/E/Zn/Coppr/Lutein/Zeaxan [Preservision Areds 2 Softgel] 1 cap PO DAILY 05/01/17 [History] hydroCHLOROthiazide [Hydrochlorothiazide] 12.5 mg PO MOWEFR 05/01/17 [History] FLUoxetine HCl [Prozac] 20 mg PO MOWEFR 10/12/18 [History] Tolterodine Tartrate [Tolterodine Tartrate ER] 2 mg PO DAILY 10/12/18 [History] B-Complex with Vitamin C [Vitamin B-Complex with Vit C] 1 tab PO DAILY 10/13/18 [History] Losartan Potassium 50 mg PO DAILY 10/13/18 [History] Azithromycin [Azithromycin 6-Tab Pack] 250 mg PO PER PKG DI #6 tab 10/15/18 [Rx] Cefdinir [Omnicef] 300 mg PO BID 4 Days #8 capsule 10/15/18 [Rx] Allergies/Adverse Reactions: Allergy/AdvReac Type Severity Reaction Status Date / Time Penicillins [PCN] Allergy Rash Verified 10/11/18 22:39 Certification: Further, I certify that my clinical findings support that this patient is homebound (i.e. absences from home require considerable and taxing effort and are for medical reasons or faith services or infrequently or short duration when for other reasons) because: Homebound Reason: Patient requires assistance of a person or device to safely leave home Attestation: My signature below is to certify that this patient is under my care and that I, or nurse practitioner, or a physician's executive assistant to president working with me, has a [id number] encounter with this patient.
[2018-10-15 15:58] VITALS: BP 133/66
[2018-10-16] MEDS ORDERED: Multivit/Ca/Min/Fe/FA 1 TAB TABLET PO SCH (09:00)
== END 2018-10-15 17:25 | disposition home or self-care (01) | DRG 871 ==
LOC: EMEROOARM 19:21 → 2NENU 19:21 → 2SOUTHHOLD 10-12 00:08 → SUATTDRO 10-12 02:08
PROVIDERS: ADMIT Pediatrics; ATTEND Student in an Organized Health Care Education/Training Program